=== PATIENT | male | born 1995 | race Caucasian/White ===

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

== ENCOUNTER 2017-04-14 09:09 | Emergency (ER) | payer OTHER, SELFPAY ==
[2017-04-14] MEDS: AUGMENTIN 875 MG TAB PO (11:07)
[2017-04-14] MEDS: ACETAMINOPHEN 325 MG TAB PO (11:07)
[2017-04-14] MEDS: ADACEL/BOOSTRIX VACCINE (DIPHTH/PERTUSS/ACELL/TETANUS)0.5ML SYR (90715) IM (11:08)
== END 2017-04-14 11:17 | disposition home or self-care (01) ==
LOC: M ED 09:09
DX: S61.452A Open bite of left hand, initial encounter (principal); Y04.1XXA Assault by human bite, initial encounter; Y92.199 Unspecified place in other specified residential institution as the place of occurrence of the external cause; Y93.F9 Activity, other caregiving; Y99.0 Civilian activity done for income or pay
CPT/HCPCS: 90715

== ENCOUNTER → 2017-11-25 | Outpatient (REF) | payer OTHER ==
[2017-11-25 16:39] LABS: CHLAMYDIA DNA AMPLIFICATION NEGATIVE (NEGATIVE); GC DNA AMPLIFICATION NEGATIVE (NEGATIVE)
== END ==
LOC: M LAB REF 13:53
DX: Z11.3 Encounter for screening for infections with a predominantly sexual mode of transmission (principal)

== ENCOUNTER 2018-01-29 20:22 | Emergency (ER) | payer OTHER ==
[2018-01-29] MEDS: ONDANSETRON 4 MG ORAL DISINTEGRATING TAB (Q0162 PER 1MG) PO (20:52)
[2018-01-29] MEDS: KETOROLAC TROMETHAMINE 10 MG TAB PO (20:53)
[2018-01-29] MEDS: diphenhydrAMINE 25 MG CAP PO (20:57)
== END 2018-01-29 22:38 | disposition home or self-care (01) ==
LOC: M ED 20:22
DX: S05.12XA Contusion of eyeball and orbital tissues, left eye, initial encounter (principal); Q85.9 Phakomatosis, unspecified; W50.0XXA Accidental hit or strike by another person, initial encounter; Y92.89 Other specified places as the place of occurrence of the external cause; Y93.89 Activity, other specified; Y99.0 Civilian activity done for income or pay; F41.9 Anxiety disorder, unspecified; F32.9 Major depressive disorder, single episode, unspecified; Z79.899 Other long term (current) drug therapy
CPT/HCPCS: Q0162

== ENCOUNTER 2018-07-27 01:46 | Emergency (ER) | payer OTHER ==
[~2018-07-27] VITALS: Ht 177.8 cm; Wt 106.8 kg
[~2018-07-27 01:46] MED LIST changes: +AUGM875T28 PO; +ESCI10TA2; +KETO10TAB PO; +ZOFR4TAB14 PO
[2018-07-27 04:27] VITALS: BP 132/74
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
== END 2018-07-27 04:29 | disposition home or self-care (01) ==
LOC: M ED 01:46
DX: Z04.1 Encounter for examination and observation following transport accident (principal); V49.49XA Driver injured in collision with other motor vehicles in traffic accident, initial encounter; Y92.410 Unspecified street and highway as the place of occurrence of the external cause

== ENCOUNTER 2018-08-09 11:22 | Emergency (ER) | payer OTHER ==
[~2018-08-09] VITALS: Ht 177.8 cm; Wt 105.9 kg
[2018-08-09] MEDS ORDERED: IBUPROFEN 800 MG TAB PO ONE (13:00)
--- NOTE | 2018-08-09 13:27 | REP ---
Head CT without contrast: History: Worsening headaches and vomiting. Comparison study: Comparison head CT study July 27, 2018. CT findings: Bone window settings demonstrate an intact bony calvarium. There is no evidence of skull fracture or incidental bony calvarial lesion. The visualized paranasal sinuses appear clear. No intraorbital abnormality is seen. On soft tissue window setting images; the lateral, third, and fourth ventricles are normal in size and position. Foy-white differentiation pattern is normal above and below the tentorium. There are is no evidence of intracranial hemorrhage. No mass, edema, infarction, or midline shift is seen. No extra-axial fluid collection is appreciated. Impression: Negative noncontrast head CT. Electronically Signed by Dioni Maldonado MD 08/09/2018 01:25 P
[2018-08-09 14:26] VITALS: BP 129/72
== END 2018-08-09 14:31 | disposition home or self-care (01) ==
LOC: M ED 11:22
DX: R51 Headache (principal); S06.0X0A Concussion without loss of consciousness, initial encounter; V89.0XXA Person injured in unspecified motor-vehicle accident, nontraffic, initial encounter; Y92.9 Unspecified place or not applicable; Y93.9 Activity, unspecified; Y99.9 Unspecified external cause status; F41.9 Anxiety disorder, unspecified; F32.9 Major depressive disorder, single episode, unspecified; Z82.49 Family history of ischemic heart disease and other diseases of the circulatory system; Z79.899 Other long term (current) drug therapy

== ENCOUNTER 2018-10-01 02:56 | Day surgery (SDC) | payer OTHER ==
[~2018-10-01] VITALS: Ht 177.8 cm; Wt 112.7 kg
[2018-10-01] MEDS ORDERED: ONDANSETRON 4MG/2ML VIAL (J2405) IV ONE (03:15)
[2018-10-01] MEDS ORDERED: NS 1,000 ML IV ONE (03:15)
[2018-10-01] MEDS ORDERED: MORPHINE 4 MG/ML 1ML VIAL/SYRINGE (J2270) As Ordered ONE (03:19)
[2018-10-01 03:28] LABS: BASO # 0.1 10^3/uL (0.0-0.2); BASO % 0.6 % (0.0-1.0); EOS # 0.2 10^3/uL (0.0-0.50); EOS % 1.7 % (0.0-3.0); HEMATOCRIT 43.7 % (42.0-52.0); HEMOGLOBIN 15.2 g/dl (13.5-17.5); LYMPH % 33.8 % (24.0-44.0); MEAN CORPUSCULAR HEMOGLOBIN 29.9 pg (27.0-33.0); MEAN CORPUSCULAR HGB CONC 34.8 g/dl (32.0-36.5); MEAN CORPUSCULAR VOLUME 85.9 fl (80.0-96.0); MONO # 0.9 10^3/uL (0.0-0.8); MONO % 10.3 % (0.0-5.0); NEUTROPHILS # 4.7 10^3/uL (1.8-7.7); NEUTROPHILS % 53.3 % (36.0-66.0); PLATELET COUNT, AUTOMATED 240 10^3/uL (150-450); RED BLOOD COUNT 5.09 10^6/uL (4.30-6.10); WHITE BLOOD COUNT 8.8 10^3/uL (4.0-10.0)
[2018-10-01] MEDS ORDERED: MORPHINE 4 MG/ML 1ML VIAL/SYRINGE (J2270) IV ONE ×2 (03:30→05:00)
[2018-10-01 03:52] LABS: ALBUMIN 3.8 GM/DL (3.2-5.2); ALT/SGPT 27 U/L (12-78); BILIRUBIN,DIRECT 0.1 MG/DL (0.0-0.2); BILIRUBIN,TOTAL 0.3 MG/DL (0.2-1.0); BLOOD UREA NITROGEN 14 MG/DL (7-18); CALCIUM LEVEL 9.6 MG/DL (8.5-10.1); CARBON DIOXIDE LEVEL 28 MEQ/L (21-32); CHLORIDE LEVEL 106 MEQ/L (98-107); CREATININE FOR GFR 1.11 MG/DL (0.70-1.30); GLOMERULAR FILTRATION RATE > 60.0 (>60); GLUCOSE, FASTING 117 MG/DL (70-100); LIPASE 91 U/L (73-393); POTASSIUM SERUM 3.4 MEQ/L (3.5-5.1); SODIUM LEVEL 141 MEQ/L (136-145)
[2018-10-01] MEDS: POTASSIUM CHLORIDE 10 MEQ SR TABLET PO ONE ×2 (04:15→04:28)
--- NOTE | 2018-10-01 04:20 | REPVR ---
EXAM: US Scrotum EXAM DATE/TIME: 10/01/2018 3:41 AM CLINICAL HISTORY: 23 years old, male; Scrotum pain; Additional info: Testicular pain R/O torsion TECHNIQUE: Imaging protocol: Real-time ultrasound of the scrotum and contents with color Doppler and image documentation. COMPARISON: Scrotal, US 11/03/2016 6:21 PM FINDINGS: Right Testicle: The right testis measures 2.5 x 4.9 x 2.6 cm. There is relatively decreased blood flow compared to the left with a resistive index of 0.92. Systolic velocity is 8.3 cm/s and end-diastolic velocity is 0.7 cm/s. Left Testicle: The left testis measures 2.8 x 4.3 x 2.4 cm and demonstrates normal blood flow. The left resistive index is 0.55 with systolic velocity of 11.0 cm/s and end-diastolic velocity of 4.9 cm/s. Epididymides: The left epididymal head measures 12 mm with a left epididymal head cyst measuring 13 x 12 x 8 mm. The right epididymal head is not visualized. Scrotum: Normal. IMPRESSION: 1. Decreased but present right testicular blood flow which may reflect partial torsion. 2. Left epididymal cyst measuring 13 x 12 x 8 mm. Electronically signed by: James Rg On 10/01/2018 04:19:42 AM
--- NOTE | 2018-10-01 04:44 | REPVR ---
EXAM: CT Abdomen and Pelvis Without Contrast EXAM DATE/TIME: 10/01/2018 4:11 AM CLINICAL HISTORY: 23 years old, male; Abdominal pain; Flank; Right; Additional info: R flank/rlq pain TECHNIQUE: Imaging protocol: Axial computed tomography images of the abdomen and pelvis without contrast. Coronal and sagittal reformatted images were created and reviewed. Radiation optimization: All CT scans at this facility use at least one of these dose optimization techniques: automated exposure control; mA and/or kV adjustment per patient size (includes targeted exams where dose is matched to clinical indication); or iterative reconstruction. COMPARISON: No relevant prior studies available. FINDINGS: Liver: Normal. No mass. Gallbladder and bile ducts: Normal. No calcified stones. No ductal dilation. Pancreas: Normal. No ductal dilation. Spleen: Normal. No splenomegaly. Adrenals: Normal. No mass. Kidneys and ureters: Normal. No hydronephrosis. No renal or ureteral calculi. Stomach and bowel: Normal. No obstruction. No mucosal thickening. Appendix: A normal appendix is seen. Intraperitoneal space: Normal. No free air. No significant fluid collection. Vasculature: Normal. No abdominal aortic aneurysm. Lymph nodes: Normal. No enlarged lymph nodes. Bladder: Unremarkable as visualized. Reproductive: Unremarkable as visualized. Bones/joints: No acute fracture. No dislocation. Soft tissues: Very minimal fat filled umbilical hernia. IMPRESSION: Negative CT abdomen/pelvis. No renal or ureteral calculi are evident and there is no evidence of obstructive uropathy. Electronically signed by: James Rg On 10/01/2018 04:44:15 AM
[2018-10-01] MEDS ORDERED: LR 1,000 ML IV SCH ×3 (05:31→08:30)
[2018-10-01] MEDS ORDERED: BUPIVACAINE HCL 0.25% 30 ML VIAL As Ordered ONE (05:38)
--- NOTE | 2018-10-01 05:46 | HPEPDOC ---
[facility] Medical History & Physical Date of Admission Oct 01, 2018 Date of Service: Oct 01, 2018 History and Physical CHIEF COMPLAINT: Right testicular pain HISTORY OF PRESENT ILLNESS: 23 yo WM with one day history of right testicular pain. Pain increased last night and awoke patient at 0230. Patient complaining of nausea and vomiting. Denies fever or chills. Denies a history of torsion. Patient reports a history of anxiety. Scrotal ultrasound shows decreased blood flow to the right testis. Denies voiding symptoms. PAST MEDICAL HISTORY: 1. anxiety PAST SURGICAL HISTORY: none SOCIAL HISTORY: non smoker ALLERGIES: Please see below. REVIEW OF SYSTEMS: CONSTITUTIONAL: neg HEENT: neg CARDIOVASCULAR: neg RESPIRATORY: neg GASTROINTESTINAL: neg GENITOURINARY: see HPI SKIN: neg MUSCULOSKELETAL: neg NEUROLOGICAL: neg PSYCHIATRIC: anxiety ENDOCRINE: neg HEMATOLOGIC/LYMPHATIC: . HOME MEDICATIONS: Please see below. PHYSICAL EXAMINATION: VITAL SIGNS: vital signs stable GENERAL APPEARANCE: in stretcher in moderate pain HEENT: unremarkable CARDIOVASCULAR: RR LUNGS: clear ABDOMEN: soft non tender MUSCULOSKELETAL: neg EXTREMITIES: FROM NEUROLOGICAL: awake and alert : penis uncircumcised, neg. Left testis normal. Right testis with torsion. Detorted 180 degrees with mild improvement. LABORATORY DATA: See below. IMAGING: See HPI MICROBIOLOGY: Please see below. ASSESSMENT:Right testicular torsion . PLAN: 1. OR for bilateral orchiopexy. Informed consent obtained. Material risks and complications were discussed. Vital Signs Vital Signs Date Time Temp Pulse Resp B/P (MAP) Pulse Ox O2 Delivery O2 Flow Rate FiO2 10/01/18 05:04 140/92 (108) 10/01/18 04:52 18 10/01/18 02:57 98.9 99 98 Laboratory Data Labs 24H Laboratory Tests 2 10/01/18 03:21: Immature Granulocyte % (Auto) 0.3, White Blood Count 8.8, Red Blood Count 5.09, Hemoglobin 15.2, Hematocrit 43.7, Mean Corpuscular Volume 85.9, Mean Corpuscular Hemoglobin 29.9, Mean Corpuscular Hemoglobin Concent 34.8, Red Cell Distribution Width 12.6, Platelet Count 240, Neutrophils (%) (Auto) 53.3, Lymphocytes (%) (Auto) 33.8, Monocytes (%) (Auto) 10.3H, Eosinophils (%) (Auto) 1.7, Basophils (%) (Auto) 0.6, Neutrophils # (Auto) 4.7, Lymphocytes # (Auto) 3.0, Monocytes # (Auto) 0.9H, Eosinophils # (Auto) 0.2, Basophils # (Auto) 0.1, Nucleated Red Blood Cells % (auto) 0.0, Anion Gap 7L, Glomerular Filtration Rate > 60.0, Calcium Level 9.6, Aspartate Amino Transf (AST/SGOT) 17, Alanine Aminotransferase (ALT/SGPT) 27, Alkaline Phosphatase 69, Total Bilirubin 0.3, Direct Bilirubin 0.1, Total Protein 7.0, Albumin 3.8, Albumin/Globulin Ratio 1.19, Lipase 91 10/01/18 04:15: Urine Color YELLOW, Urine Appearance CLOUDYH, Urine pH 6.0, Urine Specific [place] 1.018, Urine Protein NEGATIVE, Urine Glucose (UA) NEGATIVE, Urine Ketones NEGATIVE, Urine Blood NEGATIVE, Urine Nitrite NEGATIVE, Urine Bilirubin NEGATIVE, Urine Urobilinogen 0.2, Urine Leukocyte Esterase NEGATIVE, Urine WBC (Auto) 0, Urine RBC (Auto) 2, Urine Hyaline Casts (Auto) 0, Urine Bacteria (Auto) NEGATIVE, Urine Squamous Epithelial Cells 0, Urine Amorphous Sediment MODERATEH, Urine Sperm (Auto) CBC/BMP Laboratory Tests 10/01/18 03:21 Red Blood Count 5.09, Mean Corpuscular Volume 85.9, Mean Corpuscular Hemoglobin 29.9, Mean Corpuscular Hemoglobin Concent 34.8, Red Cell Distribution Width 12.6, Neutrophils (%) (Auto) 53.3, Lymphocytes (%) (Auto) 33.8, Monocytes (%) (Auto) 10.3 H, Eosinophils (%) (Auto) 1.7, Basophils (%) (Auto) 0.6, Neutrophils # (Auto) 4.7, Lymphocytes # (Auto) 3.0, Monocytes # (Auto) 0.9 H, Eosinophils # (Auto) 0.2, Basophils # (Auto) 0.1 Home Medications Miscellaneous Medications Escitalopram Oxalate (Escitalopram Oxalate) 10 Mg Tab Allergies Coded Allergies: No Known Allergies (Unverified , 11/17/16) A-FIB/CHADSVASC A-FIB History Current/History of A-Fib/PAF?: No Current PO Anticoag Therapy: No Age/Risk Factor Scoring CHADSVASC: CHADSVASC Response (Comments) Value Age Risk Factor Age < 65 years old 0 Gender Risk Factor Male 0 Hx of CHF No 0 Hx of HTN No 0 Hx of Stroke/TIA/or VTE No 0 Hx of Diabetes No 0 Hx of Vascular Disease No 0 Total 0 Lb Stephen MD Oct 01, 2018 05:46
[2018-10-01] MEDS ORDERED: RIBO400T PO (05:50)
[2018-10-01] MEDS ORDERED: ESCI20TA PO (05:50)
[2018-10-01] MEDS ORDERED: B-12100T2 PO (05:50)
[2018-10-01] MEDS ORDERED: MAGN1TAB26 PO (05:50)
[2018-10-01] MEDS ORDERED: FLUO20TA28 PO (05:50)
[2018-10-01 05:51] LABS: CHLAMYDIA DNA AMPLIFICATION NEGATIVE (NEGATIVE); GC DNA AMPLIFICATION NEGATIVE (NEGATIVE)
[2018-10-01] MEDS ORDERED: ceFAZolin SOD 2 GM in D5W MINI-BAG PLUS 50 ML IV SCH (06:00)
[2018-10-01] MEDS ORDERED: ceFAZolin 1GM INJ (J0690 PER 500MG) As Ordered ONE (06:48)
[2018-10-01] MEDS ORDERED: GLYCOPYRROLATE INJ 0.2 MG/ML 2 ML VIAL As Ordered ONE (06:54)
[2018-10-01] MEDS ORDERED: ONDANSETRON 4MG/2ML VIAL (J2405) As Ordered ONE (06:54)
[2018-10-01] MEDS ORDERED: PROPOFOL 200 MG/20 ML VIAL As Ordered ONE (06:54)
[2018-10-01] MEDS ORDERED: LIDOCAINE 2% INJ 100 MG/5 ML SDV (FOR ANES.) As Ordered ONE (06:54)
[2018-10-01] MEDS ORDERED: fentaNYL 250 MCG/5 ML INJECTION (J3010) As Ordered ONE (06:54)
[2018-10-01] MEDS ORDERED: MIDAZOLAM INJ 2 MG/2 ML VIAL (J2250) As Ordered ONE (06:54)
[2018-10-01] MEDS ORDERED: KETOROLAC 60 MG/2 ML VIAL (J1885) As Ordered ONE (06:54)
--- NOTE | 2018-10-01 07:50 | ROOPDOC ---
[facility] Report Of Operation Report of Operation DATE OF PROCEDURE: 10/01/18 PREPROCEDURE DIAGNOSES: Right testicular torsion. POSTPROCEDURE DIAGNOSES: Same. PROCEDURE: Bilateral orchiopexy. SURGEON: Lb Stephen MD ANESTHESIA: Gen. LMA. ESTIMATED BLOOD LOSS: Approximately 20 mL. COMPLICATIONS: None. REMARKS: Right testis is normal in color with minimal swelling. INDICATIONS: 23-year-old male with a right testicular torsion. Ultrasound showed decreased blood flow to the right testis. Patient's testis was detorted in the emergency department with only partial relief of his pain. Patient was brought to the operative room for bilateral orchiopexy DESCRIPTION OF PROCEDURE: Patient was brought to the operating room and foll owing administration of general anesthesia was prepped and draped in usual sterile fashion. Examination of the right testis revealed the testis was now completely detorted with minimal swelling. A longitudinal incision was made over the right testis. Incision was carried through underlying tissues. Hemostasis was achieved using electrocautery. The tunica vaginalis was incised and the testis was delivered through the surgical incision. Testis was inspected and found to be normal. The appendix testis appeared normal. The appendix testis was then clamped and excised. The base was ligated using 3-0 chromic suture. A subdartos pouch was created in the right hemiscrotum. Hemostasis was achieved using electrocautery. Right orchidopexy was performed utilizing 3-0 silk. 3 sutures were placed at the 9 o'clock position 3 o'clock position and 6 o'clock position. Good hemostasis was noted. The dartos fascia was then closed using a continuous 3-0 chromic suture. Local anesthesia using quarter percent Marcaine was infiltrated in the skin around the incision. The skin was closed using interrupted 3-0 chromic sutures. Attention was then devoted to the left testis. Longitudinal incision was made in the dartos fascia was incised. Hemostasis was achieved using electrocautery. The tunica vaginalis was incised and the testis was inspected and found to be normal. Orchiopexy was performed by placing 3-0 silk at the 3:00 and 9 o'clock position. The dartos fascia was then closed using continuous 3-0 chromic suture local anesthesia was administered using quarter percent Marcaine. The skin was then closed using interrupted 3-0 chromic sutures. A dry sterile fluff dressing was placed followed by a scrotal support. Patient tolerated procedure well returned to recovery room in satisfactory co ndition. Lb Stephen MD Oct 01, 2018 07:50
[2018-10-01] MEDS ORDERED: ONDANSETRON 4MG/2ML VIAL (J2405) IV PRN (08:00)
[2018-10-01] MEDS ORDERED: fentaNYL 100 MCG/2 ML INJECTION (J3010) IV PRN (08:00)
[2018-10-01] MEDS ORDERED: PERCOCET 5MG/325MG TAB PO PRN ×2 (08:00→09:45)
[2018-10-01] MEDS ORDERED: PERCOCET PO (08:02)
[2018-10-01 09:05] VITALS: BP 117/64
[2018-10-01 09:30] VITALS: BP 116/56
[2018-10-01 10:00] VITALS: BP 116/60
[2018-10-01 12:00] VITALS: BP 114/58
[2018-10-01 13:00] VITALS: BP 123/58
== END 2018-10-01 14:10 | disposition home or self-care (01) ==
LOC: M ED 02:56 → M SDC 05:30 → M PED 09:05 → M SDC 14:10
PROVIDERS: ATTEND Urology
DX: N44.00 Torsion of testis, unspecified (principal); N50.811 Right testicular pain; F41.9 Anxiety disorder, unspecified
CPT/HCPCS: 54600; 74176; 76870; 80048; 80076; 81001; 83690; 85025; 87491; 87591; 88302; 93976; 96361; 96374; 96375; 96376; 99284; J1885; J2250; J2270; J2405; J3010

== ENCOUNTER → 2018-10-27 | Outpatient (CLI) | payer OTHER ==
[~2018-10-27] MED LIST changes: +B-12100T2 PO; +ESCI20TA PO; +FLUO20TA28 PO; +MAGN1TAB26 PO; +PERCOCET PO; +RIBO400T PO
[2018-10-30 00:10] LABS: HERPES ZOSTER, VARICELLA IgG 1275 index (Immune >165); HERPES ZOSTER, VARICELLA IgM <0.91 index (0.00-0.90)
== END ==
LOC: M WUC 18:31
PROVIDERS: ATTEND Physician Assistant Medical
DX: Z00.00 Encounter for general adult medical examination without abnormal findings (principal)

== ENCOUNTER → 2018-11-19 | Outpatient (CLI) | payer OTHER ==
--- NOTE | 2018-11-22 19:11 | SLEEPCENT ---
DATE OF PROCEDURE: 11/19/1989 ORDERED BY: Nixon Means PA-C Diagnostic nocturnal polysomnography was performed for evaluation of sleep physiology in this patient with a history of excessive somnolence and nonrestorative sleep. 7 hours and 51 minutes of data were reviewed. There were 427.5 minutes of sleep identified. Sleep latency was mildly prolonged at 29 minutes. Rapid eye movement (REM) latency was prolonged at 158 minutes. Sleep architecture was fairly well preserved. There were three REM cycles noted. Overall sleep efficiency was 92%. The patient's electrocardiogram showed a sinus rhythm with an average heart rate of 60 beats per minute. EEG showed fairly normal waveforms for awake and sleep. There were 32 respiratory events identified of 10 seconds in duration or greater for an apnea-hypopnea index of 5.2. The events were obstructive, not exclusive to sleep stage nor body posture. Respiratory related arousal index was 0.4 and oxygen desaturations were seen on occasion into the 80s. The remaining measures of sleep physiology were normal. IMPRESSION: Mild obstructive sleep apnea syndrome (G47.33). Apnea-hypopnea index 5.2. RECOMMENDATIONS: Given the patient's symptoms of excessive somnolence and nonrestorative sleep, he should be encouraged to return to the sleep disorder center for pressure therapy. In the interim, alcohol and sedative avoidance should be practiced and caution exercised during the operation of motor vehicles.
== END ==
LOC: M SLEEP 20:00
PROVIDERS: ATTEND Physician Assistant
DX: R06.83 Snoring (principal)

== ENCOUNTER → 2018-12-24 | Outpatient (CLI) | payer OTHER ==
--- NOTE | 2018-12-27 16:18 | SLEEPCENT ---
DATE OF PROCEDURE: 12/24/2018 ORDERED BY: Nixon Means Nocturnal polysomnography was performed for the titration of pressure therapy in this patient with obstructive sleep apnea syndrome. Apnea-hypopnea index of 5.2. For testing a ResMed air fit F20 full face mask of medium size was used 4 cm of water pressure were applied to the circuit the lights were extinguished. 8 hours and 42 minutes of data were reviewed. There were 390 minutes of sleep identified. Sleep latency was prolonged at 89 minutes. REM latency was prolonged at 219 minutes. Sleep architecture improved with optimal pressure therapy. There were two REM cycles late in the study. Overall sleep efficiency was 75.8%. The patient's electrocardiogram showed sinus rhythm with an average heart rate of 52 beats per minute. EEG showed normal waveforms for awake and sleep. Respiratory events were fully palliated with C-PAP of pressure of +9 and remaining measures of sleep physiology were normal. IMPRESSION Obstructive sleep apnea syndrome (G47.33) RECOMMENDATIONS Nightly use of pressure therapy 9 cm of water.
== END ==
LOC: M SLEEP 20:00
PROVIDERS: ATTEND Physician Assistant
DX: G47.33 Obstructive sleep apnea (adult) (pediatric) (principal)

== ENCOUNTER → 2019-03-11 | Outpatient (CLI) | payer OTHER ==
--- NOTE | 2019-03-11 16:18 | REP ---
Left knee series: Five views. History: Pain in the left knee. Findings: Five views of the left knee demonstrate normal bones, joints, and soft tissues. No fracture or subluxation is seen. Impression: Negative left knee radiographs. No fracture seen. Electronically Signed by Dioni Maldonado MD 03/11/2019 04:09 P
== END ==
LOC: M WUC 15:42
PROVIDERS: ATTEND Physician Assistant
DX: M25.562 Pain in left knee (principal)

== ENCOUNTER → 2019-10-15 | Outpatient (CLI) | payer OTHER ==
[~2019-10-15] MED LIST changes: +CYCL-707 PO; -CYCL10TA PO
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
== END ==
LOC: M WUC 14:54
PROVIDERS: ATTEND Nurse Practitioner Family
DX: M25.562 Pain in left knee (principal)

== ENCOUNTER 2019-11-14 10:00 | Outpatient (RCR) | payer OTHER | END 2019-11-22 | LOC: M PT 10:00 | PROVIDERS: ATTEND Orthopaedic Surgery | DX: M25.562 Pain in left knee (principal) | CPT/HCPCS: 97110; 97161; G0283 ==

== ENCOUNTER 2019-12-20 12:09 | Outpatient (RCR) | payer OTHER | END 2019-12-23 | LOC: M PT 12:09 | PROVIDERS: ATTEND Orthopaedic Surgery | DX: M25.562 Pain in left knee (principal); S83.512D Sprain of anterior cruciate ligament of left knee, subsequent encounter; X58.XXXD Exposure to other specified factors, subsequent encounter; Z98.890 Other specified postprocedural states | CPT/HCPCS: 97110; 97161; G0283 ==

== ENCOUNTER 2020-01-17 16:45 | Outpatient (RCR) | payer OTHER | END 2020-01-22 | LOC: M PT 16:45 | PROVIDERS: ATTEND Orthopaedic Surgery | DX: M25.562 Pain in left knee (principal); S83.512A Sprain of anterior cruciate ligament of left knee, initial encounter; Z98.890 Other specified postprocedural states; X58.XXXA Exposure to other specified factors, initial encounter; Y92.9 Unspecified place or not applicable; Y99.9 Unspecified external cause status ==

== ENCOUNTER 2020-02-21 16:00 | Outpatient (RCR) | payer OTHER | END 2020-02-22 | LOC: M PT 16:00 | PROVIDERS: ATTEND Orthopaedic Surgery | DX: M25.562 Pain in left knee (principal); S83.512A Sprain of anterior cruciate ligament of left knee, initial encounter; Z98.890 Other specified postprocedural states; X58.XXXA Exposure to other specified factors, initial encounter; Y92.9 Unspecified place or not applicable; Y99.9 Unspecified external cause status ==

== ENCOUNTER → 2020-03-18 | Outpatient (CLI) | payer OTHER ==
[~2020-03-18] MED LIST changes: +ESCI10TA16; -ESCI10TA2; -ESCI20TA PO; +ESCI20TA16 PO; +NAPR-837 PO
[2020-03-18 17:33] LABS: BLOOD UREA NITROGEN 12 MG/DL (7-18); CALCIUM LEVEL 9.7 MG/DL (8.5-10.1); CARBON DIOXIDE LEVEL 32 MEQ/L (21-32); CHLORIDE LEVEL 102 MEQ/L (98-107); CREATININE FOR GFR 1.02 MG/DL (0.70-1.30); GLOMERULAR FILTRATION RATE > 60.0 (>60); GLUCOSE, FASTING 95 MG/DL (70-100); MAGNESIUM LEVEL 1.9 MG/DL (1.8-2.4); SODIUM LEVEL 138 MEQ/L (136-145)
== END ==
LOC: M LAB 16:27
PROVIDERS: ATTEND Nurse Practitioner Family
DX: Z00.00 Encounter for general adult medical examination without abnormal findings (principal)

== ENCOUNTER 2020-03-21 16:00 | Outpatient (RCR) | payer OTHER ==
[~2020-03-21 16:00] MED LIST changes: -NAPR-837 PO
== END 2020-03-24 ==
LOC: M PT 16:00
PROVIDERS: ATTEND Orthopaedic Surgery
DX: M25.562 Pain in left knee (principal); S83.512D Sprain of anterior cruciate ligament of left knee, subsequent encounter; Z98.890 Other specified postprocedural states; X58.XXXD Exposure to other specified factors, subsequent encounter

== ENCOUNTER 2020-03-26 08:26 | Emergency (ER) | payer OTHER ==
[~2020-03-26] VITALS: Ht 180.3 cm; Wt 116.4 kg
--- OUTSIDE RECORDS SUMMARY | 2020-03-26 08:39 | CCD | Continuity of Care Document ---
Author Author Guille HAYES PA Organization Unknown Address [address] [place] [address] [place] [address] Phone [phone] Care Team Providers Care [employer] Travel Counselor Name Role Phone Selena Moreno MD AUTM [phone] Daren Arcei AUTM [phone] Problems Active Problems Provider Date Acute sinusitis [place] Spangler Onset: 01/11/20 10 Social History Type Date Description Comments Sex Unknown ETOH Use Occasionally consumes alcohol Tobacco Use Start: Unknown Patient has never smoked Tobacco Use Start: Unknown The Patient Has Never Vaped Smoking Status Reviewed: 02/09/20 The Patient Has Never Vaped Allergies, Adverse Reactions, Alerts Active Allergies Reaction Severity Comments Date NKDA 05/04/2008 Seasonal 10/29/2016 Medications Active Medications SIG Qnty Indications Ordering Provide r Date No Active Medications Unknown History Medications Dymista 137-50mcg/Act Suspension 2 sprays in each nostril once daily 23gm J30.9 Melvin Garcia M.D. 08/13/2019 - 10/14/2018 Olopatadine HCL 0.1% Solution 1 drop to affected eyes twice a day 5ml H10.13 Melvin Morejon JR., M.D. 08/13/2019 - 10/14/2018 Immunizations CPT Code Status Date Vaccine Lot # [id number] Given 10/15/2019 Tdap/Tetanus, Di phth Toxoids/Acellular Pertussis Vac 7Yr Or > Vital Signs Date Vital Result Comment 02/09/2020 10:18am BP Systolic 136 mmHg BP Diastolic 85 mmHg Heart Rate 88 /min Respiratory Rate 16 /min O2 % BldC Oximetry 99 % Body Temperature 97.3 F Weight 240.00 lb Height 71 inches 5'11" BMI (Body Mass Index) 33.5 kg/m2 Pain Level 0 10/15/2019 2:30pm BP Systolic 129 mmHg BP Diastolic 77 mmHg Heart Rate 122 /min O2 % BldC Oximetry 98 % Body Temperature 98.5 F Weight 253.00 lb Height 70 inches 5'10" BMI (Body Mass Index) 36.3 kg/m2 Pain Level 9 Results Description No Information Available Procedures Date Code Description Status 10/15/2019 97926 Therapeutic, Prophylactic Or Corrina gnostic Injection Subq/Im Completed Medical Devices Description No Information Available Encounters Type Date Location Provider Dx Diagnosis Office Visit 02/09/2020 9:30a Main Office RAMIN Pires J06.9 Acute upper respiratory infection, unspecified Z20.828 Contact w and exposure to ot h viral communicable diseases Office Visit 10/15/2019 2:10p Main Office Cinthia Finch NP M25. 562 Pain in left knee S83.422A Sprain of lateral collateral ligament of left knee, init Office Visit 08/13/2019 8:25a Main Office RAMIN Lofton J30.9 Allergic rhinitis, unspecified H10.13 Acute atopic conjunctivitis, bilateral Assessments Date Code Description Provider 02/09/2020 J06.9 Acute upper respiratory infectio n, unspecified RAMIN Pires 02/09/2020 Z20.828 Contact with and (bourgeois spected) exposure to other viral communicable diseases RAMIN Pires 10/15/2019 M25.562 Pain in left knee Cinthia savage NP 10/15/2019 S83.422A Sprain of lateral co llateral ligament of left knee, initial encounter Cinthia Finch NP 08/13/2019 J30.9 Allergic rhinitis, unspecified R RAMIN Gastelum 08/13/2019 H10.13 Acute atopic conjunctivitis, gail ateral RAMIN Lofton Plan of Treatment No Information Available Functional Status Description No Information Available Mental Status Description No Information Available Referrals Refer to Reason for Referral Status Appt Date Dwight Hayes MD left knee pain Patient Declined [address] [place] [address] [phone]
--- OUTSIDE RECORDS SUMMARY | 2020-03-26 08:39 | CCD | Continuity of Care Document ---
Author Author Guille FERNÁNDEZ [facility] Organization Unknown Address [address] [place] [address] Phone [phone] Problems Description No Active Problems Social History Type Date Description Comments Sex Unknown Tobacco Use Start: Unknown Never Used Smokeless Tobacco ETOH Use Beer or Liquor- 2 drinks a day Recreational Drug Use Denies Drug Use Tobacco Use Start: Unknown Light tobacco smoker (10 or fewe r cigarettes/day) occasional cigar Smoking Status Reviewed: 02/28/20 Light tobacco smoker (10 or fewer cigarettes/day) occasional cigar Exercise Type/Frequency Exercises sporadically Tattoo/Piercing None Sun Exposure Does not use sunscreen Seat Belt/Car Seat Always uses seat belt Bike Helmet Never Smoke Alarms Yes Smoke Alarms Carbon Monoxide Detector: Yes Allergies, Adverse Reactions, Alerts Active Allergies Reaction Severity Comments Date NKDA 09/05/2012 seasonal hayfever 10/09/2015 Medications Description No Active Medications Immunizations CPT Code Status Date Vaccine Lot # [id number] Given 10/31/2018 Influenza Virus Vaccine, Quadrivalent,age 3 and up,multidose vial 92783 Given 10/12/2018 TB Intradermal Test [id number] 59532 Given 12/25/2017 Influenza Virus Vaccine, Quadrivalent,age 3 and up,multidose vial 28286 Given 01/16/2015 Menactra [id number] 23986 Given 09/19/2008 Adacel 11 Yrs or older 82029 Given 09/18/2002 Poliovirus Vacci ne, Inactivated,(IPV), For Subcutaneous Use 03963 Given 08/29/2002 DTaP (Diphtheria , Tetnus Toxoids,& Acellular Pertussis Vaccine) 46166 Given 08/24/2002 MMR 98646 Given 02/10/2000 Prevnar7 (Pneumococcal Conju gate Vaccine) 04749 Given 08/19/1998 DTaP (Diphtheria , Tetnus Toxoids,& Acellular Pertussis Vaccine) 59791 Given 08/19/1998 MMR 58138 Given 1998 Varicella Virus Vaccine, Cadence e Subcutaneous 28097 Given 05/17/1998 Comvax (Hep B & Hib) Hepatitis B And Hemophilus Influenza B Vacc 47451 Given 05/17/1998 Poliovirus Vacci ne, Inactivated,(IPV), For Subcutaneous Use 84020 Given 01/19/1998 Comvax (Hep B & Hib) Hepatitis B And Hemophilus Influenza B Vacc 57082 Given 1997 DTaP (Diphtheria , Tetnus Toxoids,& Acellular Pertussis Vaccine) 52833 Given 1997 Poliovirus Vacci ne, Inactivated,(IPV), For Subcutaneous Use 24019 Given 1997 DTaP (Diphtheria , Tetnus Toxoids,& Acellular Pertussis Vaccine) 42825 Given 1997 Comvax (Hep B & Hib) Hepatitis B And Hemophilus Influenza B Vacc 72399 Given 1997 Poliovirus Vacci ne, Inactivated,(IPV), For Subcutaneous Use 84963 Given 1997 DTaP (Diphtheria , Tetnus Toxoids,& Acellular Pertussis Vaccine) Vital Signs Date Vital Result Comment 02/28/2020 4:59pm BP Systolic 122 mmHg BP Diastolic 79 mmHg Heart Rate 110 /min Body Temperature 97.6 F Respiratory Rate 16 /min Height 69 inches 5'9" Weight 256.38 lb O2 % BldC Oximetry 99 % Peak Expiratory Flow Rate 555 Estimated Peak Flow Rate [place] Body Weight 160 lb BMI (Body Mass Index) 37.9 kg/m2 10/14/2018 11:11am BP Systolic 121 mmHg la BP Diastolic 81 mmHg la Heart Rate 95 /min Body Temperature 97.1 F Respiratory Rate 16 /min Height 69 inches 5'9" Weight 263.50 lb O2 % BldC Oximetry 98 % Peak Expiratory Flow Rate 545 Estimated Peak Flow Rate [place] Body Weight 160 lb BMI (Body Mass Index) 38.9 kg/m2 Results Description No Information Available Procedures Description No Information Available Medical Devices Description No Information Available Encounters Description No Information Available Assessments Date Code Description Provider 02/28/2020 Z00.00 Encounter for genera l adult medical examination without abnormal findings Nia Fernández FNP Plan of Treatment 02/28/2020 - Nia Fernández FNP* Z00.00 Encounter for general adult medical examination without abnormal findings* New Labs:* Basic Metabolic Profile, Scheduled: 02/28/20 * Magnesium Level, Scheduled: 02/28/20 * Follow up:* annually * All * New Medication:* No Active Medications - Functional Status Functional Condition Comment Date Status Glasses Active Independent with all ADL's Activ e Mental Status Mental Condition Comment Date Status None Active Referrals Description No Information Available
--- OUTSIDE RECORDS SUMMARY | 2020-03-26 08:39 | CCD | Continuity of Care Document ---
Author Author Guille FERNÁNDEZ [facility] Organization Unknown Address [address] [place] [address] Phone [phone] Problems Description No Active Problems Social History [...] CPT Code Status Date Vaccine Lot # [id number] Given 10/31/2018 Influenza Virus Vaccine, Quadrivalent,age 3 and up,multidose vial 99989 Given 10/12/2018 TB Intradermal Test [id number] 10011 Given 12/25/2017 Influenza Virus Vaccine, Quadrivalent,age 3 and up,multidose vial 42600 Given 01/16/2015 Menactra [id number] 85412 Given 09/19/2008 Adacel 11 Yrs or older 52163 Given 09/18/2002 Poliovirus Vacci ne, Inactivated,(IPV), For Subcutaneous Use 27587 Given 08/29/2002 DTaP (Diphtheria , Tetnus Toxoids,& Acellular Pertussis Vaccine) 09218 Given 08/24/2002 MMR 14361 Given 02/10/2000 Prevnar7 (Pneumococcal Conju gate Vaccine) 85105 Given 08/19/1998 DTaP (Diphtheria , Tetnus Toxoids,& Acellular Pertussis Vaccine) 47928 Given 08/19/1998 MMR 79637 Given 1998 Varicella Virus Vaccine, Cadence e Subcutaneous 91103 Given 05/17/1998 Comvax (Hep B & Hib) Hepatitis B And Hemophilus Influenza B Vacc 29502 Given 05/17/1998 Poliovirus Vacci ne, Inactivated,(IPV), For Subcutaneous Use 44058 Given 01/19/1998 Comvax (Hep B & Hib) Hepatitis B And Hemophilus Influenza B Vacc 78922 Given 1997 DTaP (Diphtheria , Tetnus Toxoids,& Acellular Pertussis Vaccine) 37108 Given 1997 Poliovirus Vacci ne, Inactivated,(IPV), For Subcutaneous Use 86289 Given 1997 DTaP (Diphtheria , Tetnus Toxoids,& Acellular Pertussis Vaccine) 66248 Given 1997 Comvax (Hep B & Hib) Hepatitis B And Hemophilus Influenza B Vacc 13070 Given 1997 Poliovirus Vacci ne, Inactivated,(IPV), For Subcutaneous Use 83881 Given 1997 DTaP (Diphtheria , Tetnus Toxoids,& Acellular Pertussis Vaccine) Vital Signs Date Vital Result Comment 02/28/2020 4:59pm BP Systolic 122 mmHg BP Diastolic 79 mmHg Heart Rate 110 /min Body Temperature 97.6 F Respiratory Rate 16 /min Height 69 inches 5'9" Weight 256.38 lb O2 % BldC Oximetry 99 % Peak Expiratory Flow Rate 555 Estimated Peak Flow Rate [place] Body Weight 160 lb BMI (Body Mass Index) 37.9 kg/m2 10/14/2018 11:11am BP Systolic 121 mmHg la BP Diastolic 81 mmHg la Heart Rate 95 /min Body Temperature 97.1 F Respiratory Rate 16 /min Height 69 inches 5'9" Weight 263.50 lb O2 % BldC Oximetry 98 % Peak Expiratory Flow Rate 545 Estimated Peak Flow Rate [place] Body Weight 160 lb BMI (Body Mass Index) 38.9 kg/m2 Results Description No Information Available Procedures Description No Information Available Medical Devices Description No Information Available Encounters Type Date Location Provider Dx Diagnosis Office Visit 02/28/2020 4:45p Main Office Nia Fernández FNP Z00.0 0 Encntr for general adult medical exam w/o abnormal findings Assessments Date Code Description Provider 02/28/2020 Z00.00 Encounter for genera l adult medical examination without abnormal findings Nia Fernández FNP Plan of Treatment Future Appointment(s):* 02/26/2021 4:30 pm - Nia Fernández FNP at Main Office 02/28/2020 - Nia Fernández FNP* Z00.00 Encounter for general adult medical examination without abnormal findings* New Labs:* Basic Metabolic Profile, Scheduled: 02/28/20 * Magnesium Level, Scheduled: 02/28/20 * Comments:* Health maintenance up to date. Overall doing well. STACEY/PHQ 9/CAGE questionnaire reviewed. Discussed healthy lifestyle choices. * Follow up:* annually * All * New Medication:* No Active Medications - Functional Status Functional Condition Comment Date Status Glasses Active Independent with all ADL's Activ e Mental Status Mental Condition Comment Date Status None Active Referrals Description No Information Available
--- OUTSIDE RECORDS SUMMARY | 2020-03-26 08:40 | CCD | Continuity of Care Document ---
Author Author Guille HAYES PA Organization Unknown Address [address] [place] [address] [place] [address] Phone [phone] Care Team Providers Care Mail Clerks Supervisor Name Role Phone Selena Moreno MD AUTM [phone] Daren Arcei AUTM [phone] Problems Active Problems Provider Date Acute sinusitis [...] CPT Code Status Date Vaccine Lot # [id number] Given 10/15/2019 Tdap/Tetanus, Di phth Toxoids/Acellular Pertussis [...] Available Procedures Date Code Description Status 10/15/2019 10973 Therapeutic, Prophylactic Or Corrina gnostic Injection Subq/Im [...] MD left knee pain Patient Declined [address] [place] [address] [phone]
--- OUTSIDE RECORDS SUMMARY | 2020-03-26 08:40 | CCD ---
Author Author [facility] Organization [facility] Address Unknown Phone Unavailable Care Team Providers Care Research Spec Name Role Phone Porsha Moreno MD Unavailable Unavailable Porsha Moreno MD Unavailable Unavailable Porsha Moreno MD Unavailable Unavailable Porsha Moreno MD Unavailable Unavailable Porsha Moreno MD Unavailable Unavailable Porsha Moreno MD Unavailable Unavailable Porsha Moreno MD Unavailable Unavailable Porsha Moreno MD Unavailable Unavailable Porsha Moreno MD Unavailable Unavailable Porsha Moreno MD Unavailable Unavailable Porsha Moreno MD Unavailable Unavailable Porsha Moreno MD Unavailable Unavailable Porsha Moreno MD Unavailable Unavailable Josh, Porsha Walters MD Unavailable Unavailable Josh, Porsha Walters MD Unavailable Unavailable Josh, Porsha Walters MD Unavailable Unavailable Josh, Porsha Walters MD Unavailable Unavailable Josh, Porsha Walters MD Unavailable Unavailable Josh, Porsha Walters MD Unavailable Unavailable Josh, Porsha Walters MD Unavailable Unavailable Josh, Porsha Walters MD Unavailable Unavailable Josh, Porsha Walters MD Unavailable Unavailable Josh, Porsha Walters MD Unavailable Unavailable Josh, Porsha Walters MD Unavailable Unavailable Josh, Porsha Walters MD Unavailable Unavailable Josh, Porsha Walters MD Unavailable Unavailable Josh, Porsha Walters MD Unavailable Unavailable Josh, Porsha Walters MD Unavailable Unavailable Josh, Porsha Walters MD Unavailable Unavailable Josh, Porsha Walters MD Unavailable Unavailable Josh, Porsha Walters MD Unavailable Unavailable Josh, Porsha Walters MD Unavailable Unavailable Josh, Porsha Walters MD Unavailable Unavailable Josh, Porsha Walters MD Unavailable Unavailable Josh, Porsha Walters MD Unavailable Unavailable Josh, Porsha Walters MD Unavailable Unavailable Josh, Porsha Walters MD Unavailable Unavailable Josh, Porsha Walters MD Unavailable Unavailable Josh, Porsha Walters MD Unavailable Unavailable Josh, Porsha Walters MD Unavailable Unavailable Josh, A Selena LAMA Unavailable Unavailable Josh, Porsha Walters MD Unavailable Unavailable Josh, Porsha Walters MD Unavailable Unavailable Josh, Porsha Walters MD Unavailable Unavailable Josh, Porsha Walters MD Unavailable Unavailable Josh, Porsha Walters MD Unavailable Unavailable Josh, Porsha Walters MD Unavailable Unavailable Josh, A Selena LAMA Unavailable Unavailable Josh, Porsha Walters MD Unavailable Unavailable Josh, Porsha Walters MD Unavailable Unavailable Josh, Porsha Walters MD Unavailable Unavailable Josh, Porsha Walters MD Unavailable Unavailable Josh, Porsha Walters MD Unavailable Unavailable Josh, Porsha Walters MD Unavailable Unavailable Josh, Porsha Walters MD Unavailable Unavailable Josh, Porsha Walters MD Unavailable Unavailable Josh, Porsha Walters MD Unavailable Unavailable Josh, Porsha Walters MD Unavailable Unavailable Josh, Porsha Walters MD Unavailable Unavailable Josh, Porsha Walters MD Unavailable Unavailable Josh, Porsha Walters MD Unavailable Unavailable Josh, Porsha Walters MD Unavailable Unavailable Josh, Porsha Walters MD Unavailable Unavailable Josh, Porsha Walters MD Unavailable Unavailable Josh, Porsha Walters MD Unavailable Unavailable Josh, Porsha Walters MD Unavailable Unavailable Josh, Porsha Walters MD Unavailable Unavailable Josh, Porsha Walters MD Unavailable Unavailable Josh, Porsha Walters MD Unavailable Unavailable Josh, Porsha Walters MD Unavailable Unavailable Josh, Porsha Walters MD Unavailable Unavailable Josh, Porsha Walters MD Unavailable Unavailable Josh, Porsha Walters MD Unavailable Unavailable Josh, Porsha Walters MD Unavailable Unavailable Josh, Porsha Walters MD Unavailable Unavailable Narinder JORGE MD Unavailable Unavailable Narinder JORGE MD Unavailable Unavailable Narinder JORGE MD Unavailable Unavailable Narinder JORGE MD Unavailable Unavailable Narinder JORGE MD Unavailable Unavailable Narinder JORGE MD Unavailable Unavailable Narinder JORGE MD Unavailable Unavailable Narinder JORGE MD Unavailable Unavailable Narinder JORGE MD Unavailable Unavailable Narinder JORGE MD Unavailable Unavailable Narinder JORGE MD Unavailable Unavailable Narinder JORGE MD Unavailable Unavailable Narinder JORGE MD Unavailable Unavailable Narinder JORGE MD Unavailable Unavailable Narinder JORGE MD Unavailable Unavailable Narinder JORGE MD Unavailable Unavailable Narinder JORGE MD Unavailable Unavailable Narinder JORGE MD Unavailable Unavailable Narinder JORGE MD Unavailable Unavailable Narinder JORGE MD Unavailable Unavailable Narinder JORGE MD Unavailable Unavailable Narinder JORGE MD Unavailable Unavailable Narinder JORGE MD Unavailable Unavailable Narinder JORGE MD Unavailable Unavailable Narinder JORGE MD Unavailable Unavailable Narinder JORGE MD Unavailable Unavailable Narinder JORGE MD Unavailable Unavailable Narinder JORGE MD Unavailable Unavailable Narinder JORGE MD Unavailable Unavailable Narinder JORGE MD Unavailable Unavailable Narinder JORGE MD Unavailable Unavailable Narinder JORGE MD Unavailable Unavailable Narinder JORGE MD Unavailable Unavailable Narinder JORGE MD Unavailable Unavailable Narinder JORGE MD Unavailable Unavailable Narinder JORGE MD Unavailable Unavailable Narinder JORGE MD Unavailable Unavailable Narinder JORGE MD Unavailable Unavailable Narinder JORGE MD Unavailable Unavailable Narinder JORGE MD Unavailable Unavailable Narinder JORGE MD Unavailable Unavailable Narinder JORGE MD Unavailable Unavailable Narinder JORGE MD Unavailable Unavailable Narinder JORGE MD Unavailable Unavailable Narinder JORGE MD Unavailable Unavailable Narinder JORGE MD Unavailable Unavailable Narinder JORGE MD Unavailable Unavailable Narinder JORGE MD Unavailable Unavailable Narinder JORGE MD Unavailable Unavailable Narinder JORGE MD Unavailable Unavailable Narinder JORGE MD Unavailable Unavailable Narinder JORGE MD Unavailable Unavailable Narinder JORGE MD Unavailable Unavailable Narinder JORGE MD Unavailable Unavailable Narinder JORGE MD Unavailable Unavailable Narinder JORGE MD Unavailable Unavailable Narinder JORGE MD Unavailable Unavailable Narinder JORGE MD Unavailable Unavailable Narinder JORGE MD Unavailable Unavailable Narinder JORGE MD Unavailable Unavailable Narinder JORGE MD Unavailable Unavailable Narinder JORGE MD Unavailable Unavailable Narinder JROGE MD Unavailable Unavailable Narinder JORGE MD Unavailable Unavailable Narinder JORGE MD Unavailable Unavailable Narinder JORGE MD Unavailable Unavailable Narinder JORGE MD Unavailable Unavailable Narinder JORGE MD Unavailable Unavailable Narinder JORGE MD Unavailable Unavailable Narinder JORGE MD Unavailable Unavailable Narinder JORGE MD Unavailable Unavailable Narinder JORGE MD Unavailable Unavailable Narinder JORGE MD Unavailable Unavailable Narinder JORGE MD Unavailable Unavailable Narinder JORGE MD Unavailable Unavailable Narinder JORGE MD Unavailable Unavailable Narinder JORGE MD Unavailable Unavailable Narinder JORGE MD Unavailable Unavailable Nairnder JORGE MD Unavailable Unavailable Narinder JORGE MD Unavailable Unavailable Narinder JORGE MD Unavailable Unavailable Narinder JORGE MD Unavailable Unavailable Narinder JORGE MD Unavailable Unavailable Narinder JORGE MD Unavailable Unavailable Pleskach, Nia POST SECONDARY PROFESSIONAL Unavailable Unavailable Pleskach, Nia POST SECONDARY PROFESSIONAL Unavailable Unavailable Pleskach, Nia POST SECONDARY PROFESSIONAL Unavailable Unavailable Pleskach, Nia POST SECONDARY PROFESSIONAL Unavailable Unavailable Pleskach, Nia POST SECONDARY PROFESSIONAL Unavailable Unavailable Pleskach, Nia POST SECONDARY PROFESSIONAL Unavailable Unavailable Pleskach, Nia POST SECONDARY PROFESSIONAL Unavailable Unavailable Pleskach, Nia POST SECONDARY PROFESSIONAL Unavailable Unavailable Pleskach, Nia POST SECONDARY PROFESSIONAL Unavailable Unavailable Pleskach, Nia POST SECONDARY PROFESSIONAL Unavailable Unavailable Pleskach, Nia POST SECONDARY PROFESSIONAL Unavailable Unavailable Pleskach, Nia POST SECONDARY PROFESSIONAL Unavailable Unavailable Pleskach, Nia POST SECONDARY PROFESSIONAL Unavailable Unavailable Pleskach, Nia POST SECONDARY PROFESSIONAL Unavailable Unavailable Pleskach, Nia POST SECONDARY PROFESSIONAL Unavailable Unavailable Pleskach, Nia POST SECONDARY PROFESSIONAL Unavailable Unavailable Pleskach, Nia POST SECONDARY PROFESSIONAL Unavailable Unavailable Pleskach, Nia POST SECONDARY PROFESSIONAL Unavailable Unavailable Pleskach, Nai POST SECONDARY PROFESSIONAL Unavailable Unavailable Pleskach, Nia POST SECONDARY PROFESSIONAL Unavailable Unavailable Pleskach, Nia POST SECONDARY PROFESSIONAL Unavailable Unavailable Pleskach, Nia POST SECONDARY PROFESSIONAL Unavailable Unavailable Pleskach, Nia POST SECONDARY PROFESSIONAL Unavailable Unavailable Pleskach, Nia POST SECONDARY PROFESSIONAL Unavailable Unavailable Pleskach, Nia POST SECONDARY PROFESSIONAL Unavailable Unavailable Pleskach, Nia POST SECONDARY PROFESSIONAL Unavailable Unavailable Pleskach, Nia POST SECONDARY PROFESSIONAL Unavailable Unavailable Pleskach, Nia POST SECONDARY PROFESSIONAL Unavailable Unavailable Pleskach, Nia POST SECONDARY PROFESSIONAL Unavailable Unavailable Mark Pena MD Unavailable Unavailable VaneenenaamMark MD Unavailable Unavailable VaneenenaamMark MD Unavailable Unavailable VaneenenaamMark MD Unavailable Unavailable VaneenenaamMark MD Unavailable Unavailable VaneenenaamMark MD Unavailable Unavailable VaneenenaamMark MD Unavailable Unavailable VaneenenaamMark MD Unavailable Unavailable VaneenenaamMark MD Unavailable Unavailable VaneentracyamMark MD Unavailable Unavailable VaneentracyamMark MD Unavailable Unavailable VaneentracyamMark MD Unavailable Unavailable VaneentracyamMark MD Unavailable Unavailable Vaneentracyam, Mark Keller MD Unavailable Unavailable VanMark morris MD Unavailable Unavailable Mark Pena MD Unavailable Unavailable VanMark morris MD Unavailable Unavailable VanMark morris MD Unavailable Unavailable VanMark morris MD Unavailable Unavailable VanMark morris MD Unavailable Unavailable VaneenMark cedeno MD Unavailable Unavailable VanMark morris MD Unavailable Unavailable VanMark morris MD Unavailable Unavailable VanMark morris MD Unavailable Unavailable VanMark morris MD Unavailable Unavailable VanMark morris MD Unavailable Unavailable VanMark morris MD Unavailable Unavailable VanMark morris MD Unavailable Unavailable VanMark morris MD Unavailable Unavailable VanMark morris MD Unavailable Unavailable VanMark morris MD Unavailable Unavailable VanMark morris MD Unavailable Unavailable VanMark morris MD Unavailable Unavailable VanMark morris MD Unavailable Unavailable Mark Pena MD Unavailable Unavailable Mark Pena MD Unavailable Unavailable Mark Pena MD Unavailable Unavailable VanMark morris MD Unavailable Unavailable VanMark morris MD Unavailable Unavailable VanbhupendraamMark MD Unavailable Unavailable VanMark morris MD Unavailable Unavailable Mark Pena MD Unavailable Unavailable PHILIP, TERENCE PA Unavailable Unavailable PHILIP, TERENCE PA Unavailable Unavailable PHILIP TERENCE PA Unavailable Unavailable PHILIP, TERENCE PA Unavailable Unavailable PHILIP, TERENCE PA Unavailable Unavailable PHILIP, TERENCE PA Unavailable Unavailable PHILIP, TERENCE PA Unavailable Unavailable PHILIP, TERENCE PA Unavailable Unavailable PHILIP, TERENCE PA Unavailable Unavailable PHILIP, TERENCE PA Unavailable Unavailable PHILIP, TERENCE PA Unavailable Unavailable PHILIP, TERENCE PA Unavailable Unavailable PHILIP, TERENCE PA Unavailable Unavailable PHILIP, TERENCE PA Unavailable Unavailable PHILIP, TERENCE PA Unavailable Unavailable PHILIP, TERENCE PA Unavailable Unavailable PHILIP, TERENCE PA Unavailable Unavailable PHILIP, TERENCE PA Unavailable Unavailable PHILIP, TERENCE PA Unavailable Unavailable PHILIP, TERENCE PA Unavailable Unavailable PHILIP, TERENCE PA Unavailable Unavailable PHILIP, TERENCE PA Unavailable Unavailable PHILIP, TERENCE PA Unavailable Unavailable PHILIP, TERENCE PA Unavailable Unavailable PHILIP, TERENCE PA Unavailable Unavailable PHILIP, TERENCE PA Unavailable Unavailable PHILIP, TERENCE PA Unavailable Unavailable PHILIP, TERENCE PA Unavailable Unavailable PHILIP, TERENCE PA Unavailable Unavailable PHILIP, TERENCE PA Unavailable Unavailable PHILIP, TERENCE PA Unavailable Unavailable PHILIP, TERENCE PA Unavailable Unavailable PHILIP, TERENCE PA Unavailable Unavailable PHILIP, TERENCE PA Unavailable Unavailable PHILIP, TERENCE PA Unavailable Unavailable PHILIP, TERENCE PA Unavailable Unavailable PHILIP, TERENCE PA Unavailable Unavailable PHILIP, TERENCE PA Unavailable Unavailable RING, K DEDRICK PA Unavailable Unavailable RING, K DEDRICK PA Unavailable Unavailable RING, K DEDRICK PA Unavailable Unavailable RING, K DEDRICK PA Unavailable Unavailable RING, K DEDRICK PA Unavailable Unavailable RING, K DEDRICK PA Unavailable Unavailable RING, K DEDRICK PA Unavailable Unavailable RING, K DEDRICK PA Unavailable Unavailable RING, K DEDRICK PA Unavailable Unavailable RING, K DEDRICK PA Unavailable Unavailable RING, K DEDRICK PA Unavailable Unavailable RING, K DEDRICK PA Unavailable Unavailable RING, K DEDRICK PA Unavailable Unavailable RING, K DEDRICK PA Unavailable Unavailable RING, K DEDRICK PA Unavailable Unavailable RING, K DEDRICK PA Unavailable Unavailable RING, K DEDRICK PA Unavailable Unavailable RING, K DEDRICK PA Unavailable Unavailable RING, K DEDRICK PA Unavailable Unavailable RING, K DEDRICK PA Unavailable Unavailable RING, K DEDRICK PA Unavailable Unavailable Mark Pena MD Unavailable Unavailable Vaneenenaam, Mark Keller MD Unavailable Unavailable Vaneenenaam, Mark Keller MD Unavailable Unavailable Vaneenenaam, Mark Keller MD Unavailable Unavailable Vaneenenaam, Mark Keller MD Unavailable Unavailable Vaneenenaam, Mark Keller MD Unavailable Unavailable Vaneenenaam, Mark Keller MD Unavailable Unavailable Vaneenenaam, Mark Keller MD Unavailable Unavailable Vaneenenaam, Mark Keller MD Unavailable Unavailable Vaneenenaam, Mark Keller MD Unavailable Unavailable Vaneenenaam, Mark Keller MD Unavailable Unavailable Vaneenenaam, Mark Keller MD Unavailable Unavailable Vaneenenaam, Mark Keller MD Unavailable Unavailable Vaneenenaam, Mark Keller MD Unavailable Unavailable Vaneenenaam, Mark Keller MD Unavailable Unavailable Vaneenenaam, Mark Keller MD Unavailable Unavailable Vaneenenaam, Mark Keller MD Unavailable Unavailable Vaneenenaam, Mark Keller MD Unavailable Unavailable Vaneenenaam, Mark Keller MD Unavailable Unavailable Vaneentracyam, Mark Keller MD Unavailable Unavailable Vanbhupendraam, Mark Keller MD Unavailable Unavailable Vaneenenaam, Mark Keller MD Unavailable Unavailable Vaneenenaam, Mark Keller MD Unavailable Unavailable Vaneenenaam, Mark Keller MD Unavailable Unavailable Vaneenenaam, Mark Keller MD Unavailable Unavailable Vaneenenaam, Mark Keller MD Unavailable Unavailable Vaneentracyam, Mark Keller MD Unavailable Unavailable Vaneentracyam, Mark Keller MD Unavailable Unavailable Vaneentracyam, Mark Keller MD Unavailable Unavailable Vaneenenaam, Mark Keller MD Unavailable Unavailable Vaneenenaam, Mark Keller MD Unavailable Unavailable Vaneentracyam, Mark Keller MD Unavailable Unavailable VaneentracyamMark MD Unavailable Unavailable Vaneentracyam, Mark Keller MD Unavailable Unavailable VaneentracyamMark MD Unavailable Unavailable Vaneenenaam, Mark Keller MD Unavailable Unavailable VaneentracyamMark MD Unavailable Unavailable VaneentracyamMark MD Unavailable Unavailable VanbhupendraamMark MD Unavailable Unavailable VanMark morris MD Unavailable Unavailable VaneentracyamMark MD Unavailable Unavailable Vaneenenaam, Mark Keller MD Unavailable Unavailable PFLUGH, OLIVIA INTERIOR DECORATOR PAPERHANGING Unavailable Unavailable PFLUGH, OLIVIA INTERIOR DECORATOR PAPERHANGING Unavailable Unavailable PFLUGH, OLIVIA INTERIOR DECORATOR PAPERHANGING Unavailable Unavailable PFLUGH, OLIVIA INTERIOR DECORATOR PAPERHANGING Unavailable Unavailable PFLUGH, OLIVIA INTERIOR DECORATOR PAPERHANGING Unavailable Unavailable PFLUGH, OLIVIA INTERIOR DECORATOR PAPERHANGING Unavailable Unavailable PFLUGH, OLIVIA INTERIOR DECORATOR PAPERHANGING Unavailable Unavailable PFLUGH, OLIVIA INTERIOR DECORATOR PAPERHANGING Unavailable Unavailable PFLUGH, OLIVIA INTERIOR DECORATOR PAPERHANGING Unavailable Unavailable PFLUGH, OLIVIA INTERIOR DECORATOR PAPERHANGING Unavailable Unavailable PFLUGH, OLIVIA INTERIOR DECORATOR PAPERHANGING Unavailable Unavailable PFLUGH, OLIVIA INTERIOR DECORATOR PAPERHANGING Unavailable Unavailable PFLUGH, OLIVIA INTERIOR DECORATOR PAPERHANGING Unavailable Unavailable PFLUGH, OLIVIA INTERIOR DECORATOR PAPERHANGING Unavailable Unavailable PFLUGH, OLIVIA INTERIOR DECORATOR PAPERHANGING Unavailable Unavailable PFLUGH, OLIVIA INTERIOR DECORATOR PAPERHANGING Unavailable Unavailable PFLUGH, OLIVIA INTERIOR DECORATOR PAPERHANGING Unavailable Unavailable PFLUGH, OLIVIA INTERIOR DECORATOR PAPERHANGING Unavailable Unavailable PFLUGH, OLIVIA INTERIOR DECORATOR PAPERHANGING Unavailable Unavailable PFLUGH, OLIVIA INTERIOR DECORATOR PAPERHANGING Unavailable Unavailable PFLUGH, OLIVIA INTERIOR DECORATOR PAPERHANGING Unavailable Unavailable PFLUGH, OLIVIA INTERIOR DECORATOR PAPERHANGING Unavailable Unavailable PFLUGH, OLIVIA INTERIOR DECORATOR PAPERHANGING Unavailable Unavailable PFLUGH, OLIVIA INTERIOR DECORATOR PAPERHANGING Unavailable Unavailable PFLUGH, OLIVIA INTERIOR DECORATOR PAPERHANGING Unavailable Unavailable PFLUGH, OLIVIA INTERIOR DECORATOR PAPERHANGING Unavailable Unavailable PFLUGH, OLIVIA INTERIOR DECORATOR PAPERHANGING Unavailable Unavailable PFLUGH, OLIVIA INTERIOR DECORATOR PAPERHANGING Unavailable Unavailable PFLUGH, OLIVIA INTERIOR DECORATOR PAPERHANGING Unavailable Unavailable PFLUGH, OLIVIA INTERIOR DECORATOR PAPERHANGING Unavailable Unavailable PFLUGH, OLIVIA INTERIOR DECORATOR PAPERHANGING Unavailable Unavailable PFLUGH, OLIVIA INTERIOR DECORATOR PAPERHANGING Unavailable Unavailable PFLUGH, OLIVIA INTERIOR DECORATOR PAPERHANGING Unavailable Unavailable PFLUGH, OLIVIA INTERIOR DECORATOR PAPERHANGING Unavailable Unavailable PFLUGH, OLIVIA INTERIOR DECORATOR PAPERHANGING Unavailable Unavailable PFLUGH, OLIVIA INTERIOR DECORATOR PAPERHANGING Unavailable Unavailable PFLUGH, OLIVIA INTERIOR DECORATOR PAPERHANGING Unavailable Unavailable PFLUGH, OLIVIA INTERIOR DECORATOR PAPERHANGING Unavailable Unavailable PFLUGH, OLIVIA INTERIOR DECORATOR PAPERHANGING Unavailable Unavailable PFLUGH, OLIVIA INTERIOR DECORATOR PAPERHANGING Unavailable Unavailable PFLUGH, OLIVIA INTERIOR DECORATOR PAPERHANGING Unavailable Unavailable PFLUGH, OLIVIA INTERIOR DECORATOR PAPERHANGING Unavailable Unavailable Finch, Cinthia INTERIOR DECORATOR PAPERHANGING Unavailable Unavailable Finch, Cinthia INTERIOR DECORATOR PAPERHANGING Unavailable Unavailable Finch, Cinthia INTERIOR DECORATOR PAPERHANGING Unavailable Unavailable Finch, Cinthia INTERIOR DECORATOR PAPERHANGING Unavailable Unavailable Finch, Cinthia INTERIOR DECORATOR PAPERHANGING Unavailable Unavailable Finch, Cinthia INTERIOR DECORATOR PAPERHANGING Unavailable Unavailable Finch, Cinthia INTERIOR DECORATOR PAPERHANGING Unavailable Unavailable Finch, Cinthia INTERIOR DECORATOR PAPERHANGING Unavailable Unavailable Finch, Cinthia INTERIOR DECORATOR PAPERHANGING Unavailable Unavailable Finch, Cinthia INTERIOR DECORATOR PAPERHANGING Unavailable Unavailable Finch, Cinthia INTERIOR DECORATOR PAPERHANGING Unavailable Unavailable Dorian ODOM PA Unavailable Unavailable Dorian ODOM PA Unavailable Unavailable Dorian ODOM PA Unavailable Unavailable Dorian ODOM PA Unavailable Unavailable Dorian ODOM PA Unavailable Unavailable ODOM, M EVIE PA Unavailable Unavailable ODOM, M EVIE PA Unavailable Unavailable ODOM, M EVIE PA Unavailable Unavailable ODOM, M EVIE PA Unavailable Unavailable ODOM, M EVIE PA Unavailable Unavailable ODOM, M EVIE PA Unavailable Unavailable ODOM, M EVIE PA Unavailable Unavailable ODOM, M EVIE PA Unavailable Unavailable ODOM, M EVIE PA Unavailable Unavailable ODOM, M EVIE PA Unavailable Unavailable ODOM, M EVIE PA Unavailable Unavailable ODOM, M EVIE PA Unavailable Unavailable ODOM, M EVIE PA Unavailable Unavailable ODOM, M EVIE PA Unavailable Unavailable ODOM, M EVIE PA Unavailable Unavailable ODOM, M EVIE PA Unavailable Unavailable ODOM, M EVIE PA Unavailable Unavailable ODOM, M EVIE PA Unavailable Unavailable ODOM, M EVIE PA Unavailable Unavailable ODOM, M EVIE PA Unavailable Unavailable ODOM, M EVIE PA Unavailable Unavailable ODOM, M EVIE PA Unavailable Unavailable ODOM, M EVIE PA Unavailable Unavailable ODOM, M EVIE PA Unavailable Unavailable ODOM, M EVIE PA Unavailable Unavailable ODOM, M EVIE PA Unavailable Unavailable ODOM, M EVIE PA Unavailable Unavailable ODOM, M EVIE PA Unavailable Unavailable Conner, Rosa Blanca PA Unavailable Unavailable Conner, Rosa Blanca PA Unavailable Unavailable Conner, Rosa Blanca PA Unavailable Unavailable Conner, Rosa Blanca PA Unavailable Unavailable Conner, Rosa Blanca PA Unavailable Unavailable Conner, Rosa Blanca PA Unavailable Unavailable Conner, Rosa Blanca PA Unavailable Unavailable Conner, Rosa Blanca PA Unavailable Unavailable Conner, Rosa Blanca PA Unavailable Unavailable Conner, Rosa Blanca PA Unavailable Unavailable Porsha Moreno MD Unavailable Unavailable Porsha Moreno MD Unavailable Unavailable Porsha Moreno MD Unavailable Unavailable Porsha Moreno MD Unavailable Unavailable Porsha Moreno MD Unavailable Unavailable Porsha Moreno MD Unavailable Unavailable Porsha Moreno MD Unavailable Unavailable Porsha Moreno MD Unavailable Unavailable Porsha Moreno MD Unavailable Unavailable Porsha Moreno MD Unavailable Unavailable Porsha Moreno MD Unavailable Unavailable Porsha Moreno MD Unavailable Unavailable Porsha Moreno MD Unavailable Unavailable Porsha Moreno MD Unavailable Unavailable Porsha Moreno MD Unavailable Unavailable Porsha Moreno MD Unavailable Unavailable Porsha Moreno MD Unavailable Unavailable Josh, A Selena LAMA Unavailable Unavailable Josh, A Selena LAMA Unavailable Unavailable Josh, A Selena LAMA Unavailable Unavailable Josh, A Selena LAMA Unavailable Unavailable Josh, A Selena LAMA Unavailable Unavailable Josh, A Selena LAMA Unavailable Unavailable Josh, A Selena LAMA Unavailable Unavailable Josh, A Selena LAMA Unavailable Unavailable Josh, A Selena LAMA Unavailable Unavailable Josh, A Selena LAMA Unavailable Unavailable Josh, A Selena LAMA Unavailable Unavailable Josh, A Selena LAMA Unavailable Unavailable Josh, A Selena LAMA Unavailable Unavailable Josh, A Selena LAMA Unavailable Unavailable Josh, A Selena LAMA Unavailable Unavailable Josh, A Selena LAMA Unavailable Unavailable Josh, A Selena LAMA Unavailable Unavailable Josh, A Selena LAMA Unavailable Unavailable Josh, A Selena LAMA Unavailable Unavailable Josh, A Selena LAMA Unavailable Unavailable Josh, A Selena LAMA Unavailable Unavailable Josh, A Selena LAMA Unavailable Unavailable Josh, A Selena LAMA Unavailable Unavailable Josh, A Selena LAMA Unavailable Unavailable Josh, A Selena LAMA Unavailable Unavailable Josh, A Selena LAMA Unavailable Unavailable Josh, A Selena LAMA Unavailable Unavailable Josh, A Selena LAMA Unavailable Unavailable Josh, A Selena LAMA Unavailable Unavailable Josh, A Selena LAMA Unavailable Unavailable Josh, A Selena LAMA Unavailable Unavailable Josh, A Selena LAMA Unavailable Unavailable Josh, A Selena LAMA Unavailable Unavailable Josh, A Selena LAMA Unavailable Unavailable Josh, A Selena LAMA Unavailable Unavailable Josh, A Selena LAMA Unavailable Unavailable Josh, A Selena LAMA Unavailable Unavailable Josh, A Selena LAMA Unavailable Unavailable Josh, A Selena LAMA Unavailable Unavailable Josh, A Selena LAMA Unavailable Unavailable Josh, A Selena LAMA Unavailable Unavailable Josh, A Selena LAMA Unavailable Unavailable Josh, A Selena LAMA Unavailable Unavailable Josh, A Selena LAMA Unavailable Unavailable Josh, A Selena LAMA Unavailable Unavailable Josh, A Selena LAMA Unavailable Unavailable Josh, A Selena LAMA Unavailable Unavailable Josh, A Selena LAMA Unavailable Unavailable Josh, A Selena LAMA Unavailable Unavailable Josh, A Selena LAMA Unavailable Unavailable Josh, A Selena LAMA Unavailable Unavailable Josh, A Selena LAMA Unavailable Unavailable Josh, A Selena LAMA Unavailable Unavailable Josh, A Selena LAMA Unavailable Unavailable Josh, A Selena LAMA Unavailable Unavailable Josh, A Selena LAMA Unavailable Unavailable Josh, A Selena LAMA Unavailable Unavailable Josh, A Selena LAMA Unavailable Unavailable Re-disclosure Warning The records that you are about to access may contain information from federally-assisted alcohol or drug abuse programs. If such information is present, then the following federally mandated warning applies: This information has been disclosed to you from records protected by federal confidentiality rules (42 CFR part 2). The federal rules prohibit you from making any further disclosure of this information unless further disclosure is expressly permitted by the written consent of the person to whom it pertains or as otherwise permitted by 42 CFR part 2. A general authorization for the release of medical or other information is NOT sufficient for this purpose. The Federal rules restrict any use of the information to criminally investigate or prosecute any alcohol or drug abuse patient.The records that you are about to access may contain highly sensitive health information, the redisclosure of which is protected by Article 27-F of the [facility] Public Health law. If you continue you may have access to information: Regarding HIV / AIDS; Provided by facilities licensed or operated by the [facility] Office of Mental Health; or Provided by the [facility] Office for People With Developmental Disabilities. If such information is present, then the following [facility] mandated warning applies: This information has been disclosed to you from confidential records which are protected by state law. State law prohibits you from making any further disclosure of this information without the specific written consent of the person to whom it pertains, or as otherwise permitted by law. Any unauthorized further disclosure in violation of state law may result in a fine or mcfp sentence or both. A general authorization for the release of medical or other information is NOT sufficient authorization for further disc losure. Family History Family Member Name Family Member Gender Family Member Status Date o f Status Description Data Source(s) Unknown Unknown Problem [facility] ([facility] Encounters Encounter Providers Location Date Indications Data Source(s ) Outpatient Attender: Nia Snider [facility] Main Office 02/28/2020 0 3:45:00 PM EST [facility] ([facility] Outpatient Attender: Blanca olmedo 02/09/2020 08:30:00 AM EST [facility] ([facility] Outpatient Attender: BRITTANI Lunderrer: Selena wong MD 01/25/2020 10:42:07 AM EST [facility] Outpatient Attender: BRITTANI NAYAKeferrer: Selena wong MD 12/28/2019 01:45:43 PM EST [facility] Recurring Patient Attender: BRITTANI JORGE MDReferrer: Selena rand MD 12/27/2019 01:03:59 PM EST [facility] Outpatient Attender: OLIVIA MEJIA NPReferrer: Selena Lloyd ams, MD 11/30/2019 03:24:38 PM EDT [facility] Outpatient Attender: BRITTANI JORGE MDReferrer: Selena wong MD 11/16/2019 10:27:10 PM EDT [facility] Recurring Patient Attender: BRITTANI JORGE MDReferrer: Selena rand MD 11/15/2019 10:59:09 AM EDT [facility] Recurring Patient Referrer: Selena Moreno MD 11/01/2019 0 8:05:51 AM EDT [facility] Outpatient Attender: BRITTANI JORGE MDReferrer: Selena wong MD 10/25/2019 08:15:57 AM EDT [facility] Outpatient Attender: BRITTANI JORGE MDReferrer: Selena wong MD 10/19/2019 08:58:17 AM EDT [facility] Recurring Patient Referrer: Selena Moreno MD 10/18/2019 0 1:55:00 PM EDT [facility] Recurring Patient Referrer: Selena Moreno MD 10/18/2019 0 8:13:15 AM EDT [facility] Outpatient Attender: Cinthia ha 10/15/2019 02:10:00 PM EDT [facility] ([facility]) Outpatient Attender: DEDRICK Bailey Primary 08/13/2019 08:25:00 AM EDT [facility] ([facility]) Outpatient Attender: Mark Pena MD Physical Therap y 05/19/2019 01:45:00 PM EDT [facility] ([facility]) Outpatient Attender: Mark Pena MD Physical Therap y 04/06/2019 02:45:00 PM EST [facility] ([facility]) Outpatient Referrer: Mark Pena MD 04/01/2019 08: 30:00 AM EST [facility] Outpatient Referrer: Mark Pena MD 04/01/2019 08: 25:00 AM EST [facility] Outpatient Referrer: Mark Pena MD 04/01/2019 08: 25:00 AM EST [facility] Outpatient Referrer: Mark Pena MD 03/27/2019 11: 11:00 AM EST [facility] Outpatient Referrer: Mark Pena MD 03/27/2019 09: 43:00 AM EST [facility] Outpatient Referrer: Mark Pena MD 03/27/2019 09: 35:00 AM EST [facility] Outpatient Referrer: Selena Moreno MD 03/27/2019 09:33:00 AM EST [facility] Outpatient Referrer: Selena Moreno MD 03/27/2019 09:20:00 AM EST [facility] Outpatient Attender: Mark Pena MD Physical Therap y 03/24/2019 12:30:00 PM EST [facility] ([facility]) Outpatient Referrer: Selena Moreno MD 03/23/2019 09:22:00 PM EST [facility] Outpatient Referrer: Selena Moreno MD 03/16/2019 03:32:00 PM EST [facility] Outpatient Attender: Cinthia ha 03/16/2019 02:25:00 PM EST [facility] ([facility]) Outpatient Attender: TERENCE Bailey Prima ry 03/11/2019 01:40:00 PM EST [facility] ([facility]) Outpatient Attender: EVIE Bradley/Rosemaire/Ronny/Domenico dl 03/08/2019 02:30:00 PM EST [facility] ([facility] Outpatient Attender: TERENCE Bailey Prima ry 03/01/2019 03:20:00 PM EST [facility] ([facility]) Immunizations Vaccine Date Status Description Data Source(s) INFLUENZA VIRUS VACCINE QUADRIVALENT (6 MOS AN D UP) 01/22/2020 12:00:00 AM EST completed [facility] Tdap 10/15/2019 03:27:00 PM EDT completed [facility] ([facility]) Medications Medication Brand Name Start Date Product Form Dose Route Admi nistrative Instructions Pharmacy Instructions Status Indications Reaction Description Data Source(s) 5-325 mg 11/29/2019 12:00:00 AM EDT tablet 20 TAKE ONE TO TWO TABLET BY MOUTH EVERY FOUR TO SIX HOUR NEEDED FOR PAIN MAXIMUM DAILY DOSE = SIX TABLETS TAKE ONE TO TWO TABLET BY MOUTH EVERY FO UR TO SIX HOUR NEEDED FOR PAIN MAXIMUM DAILY DOSE = SIX TABLETS SOLD: 11/30/2019 [facility] 325 mg 11/15/2019 12:00:00 AM EDT tablet,delayed release (DR/EC) 30 TAKE ONE TABLET BY MOUTH EVERY DAY TAKE ONE TABLET BY MOUTH EVERY DAY SOLD: 11/16/2019 [facility] 5-325 mg 11/15/2019 12:00:00 AM EDT tablet 40 TAKE ONE TO TWO TABLETS BY MOUTH EVERY 4 TO 6 HOURS NEEDED FOR PAIN MAXIMUM DAILY DOSE = 6 TABLETS TAKE ONE TO TWO TABLETS BY MOUTH EVERY 4 TO 6 HOURS NEEDED FOR PAIN MAXIMUM DAILY DOSE = 6 TABLETS SOLD: 11/16/2019 [facility] Cephalexin 500 MG Oral Capsule CEPHALEXIN 11/15/2019 12:00:00 AM EDT capsule 4 TAKE ONE CAPSULE BY MOUTH FOUR TIMES A DAY UNTIL GONE TAKE ONE CAPSULE BY MOUTH FOUR TIMES A DAY UNTIL GONE SOLD: 11/16/2019 [facility] 500 mg 10/18/2019 12:00:00 AM EDT tablet 60 TAKE 1 TABLET BY MOUTH EVERY 12 HOURS NEEDED TAKE 1 TABLET BY MOUTH EVERY 12 HOURS NEEDED SOLD: 10/19/2019 [facility] No Active Medications 10/15/2019 12:00:00 AM EDT active [facility] ([facility]) 137 mcg (0.1 %) 08/13/2019 12:00:00 AM EDT aerosol,spray 30 SPRAY TWO SPRAYS IN EACH NOSTRIL EVERY DAY SPRAY TWO SPRAYS IN EACH NOSTRIL EVERY DAY SOLD: 08/13/2019 [facility] 0.1 % 08/13/2019 12:00:00 AM EDT drops 5 INSTILL ONE DROP IN THE AFFECTED EYE(S) TWICE A DAY INSTILL ONE DROP IN THE AFFECTED EYE(S) TWICE A DAY SO LD: 08/13/2019 [facility] Dymista Dymista 08/13/2019 12:00:00 AM EDT complet ed [facility] ([facility]) olopatadine 1 MG/ML Ophthalmic Solution Olopatadine HCL 08/13/2019 12:00:00 AM EDT completed [facility] ([facility]) 50 mcg/actuation 08/13/2019 12:00:00 AM EDT spray,suspension 16 SPRAY TWO SPRAYS IN EACH NOSTRIL EVERY DAY SPRAY TWO SPRAYS IN EACH NOSTRIL EVERY DAY SOLD: 08/13/2019 [facility] No Active Medications 05/02/2019 12:00:00 AM EDT active [facility] ([facility] ) No Active Medications 03/01/2019 12:00:00 AM EST completed [facility] ([facility]) 2.5 % 02/06/2019 12:00:00 AM EST cream with perineal zeynep licator 30 APPLY TO AFFECTED AREA(S) TWO TIMES A DAY NEEDED FOR ITCHING FOR 21 DAYS APPLY TO AFFECTED AREA(S) TWO TIMES A DAY NEEDED FOR ITCHING FOR 21 DAYS SOLD: 02/06/2019 [facility] Insurance Providers Payer name Policy type / Coverage type Policy ID Covered constitution party ID Covered constitution party's relationship to jackman Policy Jackman Plan Information R [facility] [id number] FA2 [id number] R F [id number] PARENT [id number] UMR O [id number] S [id number] UMR F [id number] SELF [id number] UMR O [id number] S [id number] R [facility] [id number] FA2 [id number] [facility] [id number] SP [id number] [facility] W [id number] Empl [id number] [facility] [id number] [facility] E [id number] Self [id number] [facility] Insurance Workers Compensation [id number] Self [id number] Pma Insurance Workers Compensation [id number] Self [id number] Commercial [id number] No Fault Workers Compensation [id number] Self [id number] Pma Insurance Workers Compensation [id number] Self [id number] Umr Commercial [id number] PMA MANAGEMENT SOFIA [id number] SP [id number] [facility] Commercial [id number] Family Dependent [id number] Umr/[employer] Health Maintenance Organization (HMO) [id number] Family Dependent [id number] Pma Insurance Workers Compensation [id number] Self [id number] Umr Commercial [id number] [employer] Commercial [id number] Family Dependent [id number] Umr/[employer] Health Maintenance Organization (HMO) [id number] Family Dependent [id number] Pma Insurance Workers Compensation [id number] Self [id number] Umr Commercial [id number] [facility] WC W [id number] Pma Insurance Workers Compensation [id number] Self [id number] Umr Commercial [id number] Workers Compensation Workers Compensation [id number] Umr Commercial [id number] PMA MANAGEMENT SOFIA [id number] SP [id number] PMA MANAGEMENT SOFIA [id number] SP [id number] UMR [facility] [id number] [id number] Umr Commercial [id number] [employer] Commercial [id number] Family Dependent [id number] Umr/[employer] Health Maintenance Organization (HMO) [id number] Family Dependent [id number] Umr Commercial [id number] Umr/[employer] Medigap Part B [id number] Self [id number] [employer] Commercial [id number] Family Dependent [id number] Umr/[employer] Medigap Part B [id number] Self [id number] [facility] Commercial [id number] Family Dependent [id number] ESIS N/F CLM [id number] SP [id number] [id number] [facility] MUTUAL [id number] SP [id number] [employer] [id number] FA2 [id number] [facility] SP SELF PAY ONLY [employer] PPO O [id number] S [id number] [employer] Commercial [id number] Family Dependent [id number] [employer] Medigap Part B [id number] Family Dependent [id number] [employer] Commercial [id number] Family Dependent [id number] EISIS O [id number] S [id number] [facility] MUTUAL O [id number] O [id number] [facility] MUTUAL [id number] SP [id number] [employer] Medigap Part B [id number] Family Dependent [id number] [employer] [id number] FA2 [id number] [employer] Commercial [id number] Family Dependent [id number] [employer] Commercial [id number] Family Dependent [id number] [employer] (pr) Commercial [id number] Family Dependent [id number] [employer] Medigap Part B Family Dependent [employer] Commercial Family Dependent [employer] (pr) Commercial [id number] Family Dependent 3 35 [employer] Commercial Family Dependent [employer]OM[employer] U [id number] Child [id number] Surgeries/Procedures Procedure Description Date Indications Data Source(s) Therapeutic, Prophylactic Or Diagnostic Injection Subq/Im 10/15/2019 12:00:00 AM EDT [facility] ([facility]) Physical Therapy Eval - Low Complexity 05/01/2019 12:0 0:00 AM EDT [facility] ([facility]) Therapeutic, Prophylactic Or Diagnostic Injection Subq/Im 03/16/2019 12:00:00 AM EST [facility] ([facility]) Results ID Date Data Source [id number] 02/10/2020 04:20:00 PM EST [facility] Name Value Range Interpretation Code Description Data Christina rce(s) Supporting Document(s) SARS coronavirus [address] [facility] This lab was ordered by [facility] and rep orted by [facility]. ID Date Data Source [id number] 02/09/2020 12:00:00 AM EST [facility] Name Value Range Interpretation Code Description Data Christina rce(s) Supporting Document(s) SARS coronavirus 2 Ag [facility] This lab was ordered by [facility] and reported by [facility]. ID Date Data Source [id number] 01/25/2020 10:42:07 AM EST [facility]: Gianni GoldmanRikOB: 1995Provider: Shreyas Jorge: 01/24/2020 Reason For VisitClmode Riley is here today for right knee. Gianni Riley is an established patient here for follow up. Other DOI/DOO: 10/15/19. Surgery DOS: 11/21/2019. Surgery Description: left knee arthroscopy, ACLR, patellar tendon autograft. The patient was notified that the office visit was recorded to enhance documentation accuracy. (GPN). Patient is not working at this time due to this problem. History of Present IllnessCHIEF COMPLAINTFollow-up of the left knee.HISTORY OF PRESENT ILLNESSThis is a 24-year-old male who presents for a follow-up evaluation regarding his left knee. He is now just over 2 months status post left knee ACL reconstruction with patellar tendon autograft. He notes that he is doing well. He is doing physical therapy. The patient is still wearing his brace. 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 AssessmentASSESSMENTStatus post left knee ACL reconstruction. Plan FB Functional ACL Knee Brace OTS (SOS) [id number]; Status:Need Information - FinancialAuthorization; Requested for:24Jan2020; Perform:SOS14 (General); Due:[id number]; Last Updated By:Glenda Norris; 01/24/2020 3:44:39 PM;Ordered; For:Left knee pain, Status post anterior cruciate ligament surgery; Ordered By:Brittani Jorge; Physical Therapy (SOS) - General Treatment Treatment Status: Complete Done:[id number] Ordered;For: Status post anterior cruciate ligament surgery; Ordered By: Brittani Jorge Performed: Due: [id number]; Last Updated By: Glenda Norris; 01/24/2020 3:44:39 PMPT Protocol : Evaluate and treat as indicated, per protocol or as previously written.Duration: : Four WeeksPT Frequency : Two or three times a weekLaterality and Body Part : left ACL-R, can start jogging in 2 months with brace, dc T-scopy Work Note (SOS) Treatment Treatment Status: Complete Done: [id number] Ordered;For: Examination; Ordered By: Brittani Jorge Performed: Due: [id number]; Last Updated By: Glenda Norris; 01/24/2020 3:44:39 PMRestrictions : noneWorks Status : Patient to resume full dutySeen Today for Evaluation and Treatment : The randell pacheco was seen today in the office for evaluation and treatment. ASSESSMENTStatus post left knee ACL reconstruction.PLANThe patient is following up regarding his left knee just over 2 months status post left knee ACL reconstruction with patellar tendon autograft. I reviewed with the patient their exam and imaging findings. He is doing very well. He has nearly full range of motion. He does have a stable Bernard with no swelling or pain. I am very pleased with his progress. I explained the anatomy of the knee. We discussed their diagnosis as well as treatment options. At this point, we will release him back to full duty. He will continue with physical therapy, and he was provided with a new prescription for this today. He can start jogging in 2 months with his functional brace, but we will discontinue the current T-scope brace. We will put in authorization for an ACL brace for return to activity. We will release him to full duty today. All questions were answered. He will follow up in 3 [facility]. The patient understands and agrees with this plan.I am prescribing a functional knee brace for this patient. The patient is ambulatory but recovering from their recent injury causing instability of the knee joint and requires stabilization from this brace to improve their function during physical activity. Scribed by Alejandro Coleman on 01/25/2020 at 03:35 AM for Brittani Jorge Signatures Electronically signed by : Alejandro Leiva MA; Jan 25 2020 3:36AM EST (Author) Electronically signed by : Brittani Jorge M.D.; Jan 25 2020 10:42AM EST Name Value Range Interpretation Code Description Data Christina rce(s) Supporting Document(s) ID Date Data Source [id number] 12/28/2019 01:45:43 PM EST [facility] GoldmanRikOB: 1995Provider: Brittani JorgeDOS: 12/27/2019 Reason For VisitClmode Riley is here today for right knee. Gianni Riley is here for evaluation of arthrogram results. Other DOI/DOO: 10/15/19. Surgery DOS: 11/21/2019. Surgery Description: left knee arthroscopy, ACLR, patellar tendon autograft. (GPN). Patient is not working at this time due to this problem. History of Present IllnessCHIEF COMPLAINTFollow-up of the left knee.HISTORY OF PRESENT ILLNESSThis is a 24-year-old male who presents for a follow-up evaluation regarding his left knee. He is now 5 weeks status post ACL reconstruction of the left knee with patellar tendon autograft. He notes that he is doing well. He has minimal pain at this point. The patient is doing physical therapy. 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 AssessmentASSESSMENTStatus post left ACL reconstruction. Plan Start: Meloxicam 15 MG Oral Tablet; TAKE 1 TABLET DAILY NEEDED Rx By: Brittani Jorge; Dispense: 30 Days ; #:30 Tablet; Refill: 0;For: Rupture of anterior cruciate ligament of left knee, initial encounter; SERENITY = N; Verified Transmission to [facility]; Last Updated By: [employer] [place]; 12/27/2019 1:36:11 PM Start: methylPREDNISolone 4 MG Oral Tablet Therapy Pack (Medrol); Take as directed Rx By: Brittani Jorge; Dispense: 0 Days ; #:1 X 21 Tablet Pack; Refill: 0;For: Rupture of anterior cruciate ligament of left knee, initial encounter; SERENITY = N; Verified Transmission to [facility]; Last Updated By: [employer] [place]; 12/27/2019 1:36:11 PM Physical Therapy (SOS) - General Treatment Treatment Status: Complete Done:27Dec2019 Ordered;For: Left knee pain; Ordered By: Brittani Jorge Performed: Order Comments: left ACL- Rwean off brace aggressive ROM Due: 10Jan2020; Last Updated By: Suzy Chan; 12/27/2019 1:34:19 PMPT Protocol : Evaluate and treat as indicated, per protocol or as previously written.Duration: : Four WeeksPT Frequency : Two or three times a weekLaterality and Body Part : left knee Work Note (SOS) Treatment Treatment Status: Complete Done: 27Dec2019 Ordered;For: Health Maintenance, Examination; Ordered By: Brittani Jorge Performed: Due: 10Jan2020; Last Updated By: Suzy Chan; 12/27/2019 1:34:19 PMRestrictions : security onlyCondition due to work related injury of : left kneeWorks Status : Patient to resume light dutySeen Today for Evaluation and Treatment : The patient was seen today in the office for evaluation and treatment. PLANThe patient is following up regarding his left knee, 5 weeks status post left ACL reconstruction with patellar tendon autograft. I reviewed with the patient their exam and imaging findings. He is making good progress. He has no pain. He has b een doing physical therapy. At this point, he still has some residual swelling. I explained the anatomy of the knee. We discussed their diagnosis as well as treatment options. I would like to place him on a Medrol Dosepak for a short course, and then he will transition to meloxicam. I also would like to encourage him to wean off the T-Scope braces as I think this is also beating him from getting his flexion, as he is only able to get to about 90 to 100 degrees as opposed to 130 degrees on the contralateral side. This was all explained to him. We will release him to light duty, sedentary work only starting 01/01/2020. All questions were answered. He will follow up in 3 weeks. The patient understands and agrees with this plan. Scribed by Alejandro Leiva on 12/28/2019 at 02:23 AM for Brittani Jorge Signatures Electronically signed by : Alejandro Leiva MA; Dec 28 2019 2:23AM EST (Author) Electronically signed by : Brittani Jorge M.D.; Dec 28 2019 1:45PM EST Name Value Range Interpretation Code Description Data Christina rce(s) Supporting Document(s) ID Date Data Source [id number] 11/30/2019 03:24:38 PM EDT [facility]: Gianni GoldmanneDOB: 1995Provider: Judith MejiahDOS: 11/29/2019 Reason For VisitClmode Riley is here today for right knee. Gianni Riley is here for first post-op appointment. Other DOI/DOO: 10/15/19. Surgery DOS: 11/21/2019. Surgery Description: left knee arthroscopy, ACLR, patellar tendon autograft. (GPN). Patient is not working at this time due to this problem. History of Present IllnessGianni returns for first postoperative visit in regards to his left knee. He underwent an arthroscopy on 11/21/2019. At the time of surgery, he was found to have a complete traumatic tear of the ACL. No meniscal tears were identified. He thus underwent an ACL reconstruction with patellar tendon autograft. Since his surgery, he has done quite well. He is using analgesics sporadically. He has been compliant with VERO stockings and aspirin as DVT prophylaxis. His T scope brace has remained locked in extension and he is nonweightbearing with crutches. AssessmentAftercare f [facility]ing surgeryComplete traumatic tear of the ACL of the left knee, subsequent encounter with routine healing Plan Start: oxyCODONE-Acetaminophen 5-325 MG Oral Tablet (Percocet); Percocet [id number] po q 4-6hrs prn pain MDD:6 Rx By: Olivia Mejia; Dispense: 0 Days ; #:20 Tablet; Refill: 0;For: Rupture of anterior cruciate ligament of left knee, initial encounter; SERENITY = N; Verified Transmission to [facility]; Last Updated By: [employer]; 11/29/2019 4:48:45 PM X-Ray I Knee - 2 views (XRays were ordered, obtained and interpreted today in theoffice. Indication: pain/dysfunction.); Status:Complete; Done: 29Nov2019 Perform:SOS14 (General); Due:13Dec2019; Last Updated By:Rik Carter; 11/29/2019 3:16:48 PM;Ordered; For:Left knee pain; Ordered By:Olivia Mejia;Weight Bearing Status : Weight bearingLaterality: : Left Physical Therapy (SOS) - General Treatment Treatment Status: Complete Done:29Nov2019 Ordered;For: Left knee pain, Rupture of anterior cruciate ligament of left knee, initial encounter, Status post anterior cruciate ligament surgery; Ordered By: Olivia Mejia Performed: Due: 13Dec2019; Last Updated By: Bridget Dudley; 11/29/2019 3:27:17 PMTreat with modalities as indicated: : YesPT Protocol : Evaluate and treat as indicated, per protocol or as previously written.Duration: : Six WeeksPT Frequency : Twice a weekLaterality and Body Part : left knee Plan, Assessment and Recommendation(s) continue with current plan. Schedule Appointment: Weeks: 4 He is currently doing well with his postoperative recovery. He was instructed on a continued quad set and straight leg raise exercise program at home and was also provided with a prescription and protocol for physical therapy. Over the next week, he may progress weightbearing at his discretion and discontinue crutches as symptoms dictate and as per recommendations of his physical therapist. He will require the T scope brace for approximately 4 weeks post surgery and begin gradual range of motion. He was encouraged to continue with aspirin for 3 more weeks. Arthroscopic pictures were reviewed with him in detail. Work / School Note Gianni Riley is currently not working. DisclaimersThis document was dictated and electronically signed using [employer] Speaking software. A reasonable attempt at proof reading has been made to minimize errors. Please call with any questions. Chief ComplaintClmode Riley presents for pain/dysfunction in the LEFT knee. He complains of discomfort and pain. Signatures Electronically signed by : Olivia Mejia NP; Nov 29 2019 6:07PM EST (Author) Electronically signed by : Brittani Jorge M.D.; Nov 30 2019 3:24PM EST Name Value Range Interpretation Code Description Data Christina rce(s) Supporting Document(s) ID Date Data Source [id number] 11/16/2019 01:47:00 PM EDT [facility] Name Value Range Interpretation Code Description Data Christina rce(s) Supporting Document(s) SARS

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
[2020-03-26] MEDS ORDERED: CYCL-707 PO (10:04)
[2020-03-26] MEDS ORDERED: NAPR-837 PO (10:04)
[2020-03-26 10:23] VITALS: BP 137/86
== END 2020-03-26 10:25 | disposition home or self-care (01) ==
LOC: M ED 08:26
DX: S13.4XXA Sprain of ligaments of cervical spine, initial encounter (principal); V49.49XA Driver injured in collision with other motor vehicles in traffic accident, initial encounter; Y92.410 Unspecified street and highway as the place of occurrence of the external cause; F33.9 Major depressive disorder, recurrent, unspecified; F41.9 Anxiety disorder, unspecified

== ENCOUNTER → 2020-04-03 | Outpatient (CLI) | payer OTHER ==
[~2020-04-03] MED LIST changes: +NAPR-837 PO
--- NOTE | 2020-04-04 16:01 | SLEEPHOME ---
DATE: 04/03/2020 ORDERED BY: RAMIN Ngo [facility] home sleep testing was performed due to concern for the persistence of obstructive sleep apnea syndrome. For testing, a nocturnal T3 respiratory monitoring device was used. Continuous record was made of pulse, oxygen saturation, air flow, chest and abdominal strain, and body position. Eight hours and 21 minutes of data were reviewed. There were 6 hours and 32 minutes marked as time in bed. During the interval marked time in bed, there were 64 respiratory events identified of 10 seconds in duration or greater for a respiratory event index of 9.8. The events were primarily obstructive, 9 mixed and central apneas were seen. Baseline pulse rate was 80. Pulse rate ranged 27 to 180. Baseline saturation was 95%. Saturations fell to 83% in a pattern of variability. Testing was performed in both the supine and nonsupine positions. IMPRESSION: Abnormal home sleep testing with repetitive respiratory events and oxygen desaturations to 83% with a respiratory event index of 9.8 is consistent with the obstructive sleep apnea syndrome. RECOMMENDATION: The patient should be encouraged to undergo a formal sleep evaluation and initiation of pressure therapy.
== END ==
LOC: M SLEEP HO 11:45
PROVIDERS: ATTEND Physician Assistant
DX: G47.33 Obstructive sleep apnea (adult) (pediatric) (principal)

== ENCOUNTER → 2022-10-01 | Outpatient (REF) | payer OTHER | LOC: M LAB REF 17:08 | PROVIDERS: ATTEND Registered Nurse | DX: R21 Rash and other nonspecific skin eruption (principal) ==

== ENCOUNTER 2025-01-09 06:56 | Emergency (ER) | payer BC, OTHER ==
[~2025-01-09] VITALS: Ht 177.8 cm; Wt 117.3 kg
[~2025-01-09 06:56] MED LIST changes: +FLUO1TAB4 PO; -FLUO20TA28 PO; -IBUP-1022 PO; +IBUP600T42 PO
[2025-01-09] MEDS: KETOROLAC 60 MG/2 ML VIAL IM ONE (08:35)
[2025-01-09] MEDS ORDERED: HOME MED LIST COMPLETE! XX SCH (10:25)
[2025-01-09 10:30] VITALS: BP 116/65; TEMP 97.3; O2SAT 98
== END 2025-01-09 10:41 | disposition home or self-care (01) ==
LOC: M ED 06:56
DX: S06.0X0A Concussion without loss of consciousness, initial encounter (principal); Y92.9 Unspecified place or not applicable; Y93.9 Activity, unspecified; Y99.0 Civilian activity done for income or pay; W00.0XXA Fall on same level due to ice and snow, initial encounter
CPT/HCPCS: 70450; 96372; 99283; J1885